=== PATIENT | female | born 1975 | race Asian ===

== ENCOUNTER 2024-03-14 21:55 | Emergency (ER) | payer OTHER, SELFPAY ==
[2024-03-14] VITALS (10 sets, daily range): BP systolic 102–104; BP diastolic 73–75; PULSE 58–67; RESP 13–24; TEMP 37.1; O2SAT 98–100
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
[2024-03-14 22:29] LABS: Basophils Absolute Auto 0.1 K/mm3 (0.0-0.1); Basophils Percent Auto 0.5 % (0.2-1.2); Eosinophils Absolute Auto 0.3 K/mm3 (0-0.3); Eosinophils Percent Auto 2.6 % (0-4.4); Hematocrit 43.1 % (37.0-47.0); Hemoglobin 14.4 g/dL (12.0-15.0); Immature Granulocyte Absolute 0.02 K/mm3 (0.00-0.031); Immature Granulocyte Percent A 0.2 % (0-0.5); Lymphocytes Absolute Auto 3.26 K/mm3 (0.9-3.2); Lymphocytes Percent Auto 30.3 % (18.3-44.2); Mean Corpuscular HGB Conc 33.4 g/dl (32-36); Mean Corpuscular Hemoglobin 31.2 pg (26-34); Mean Corpuscular Volume 93.5 fl (80-100); Mean Platelet Volume 8.6 fl (7.4-10.4); Monocytes Absolute Auto 0.7 K/mm3 (0.1-0.6); Monocytes Percent Auto 6.1 % (2.6-8.5); Neutrophils Absolute Auto 6.5 K/mm3 (1.3-6.7); Neutrophils Percent Auto 60.3 % (45.5-73.1); Platelet Count Result 286 k/mm3 (150-375); Red Blood Count 4.61 M/mm3 (4.2-5.4); Red Cell Distribution Width 12.8 % (11.5-14.5); White Blood Count 10.8 K/mm3 (4.5-10.0)
[2024-03-14 22:41] LABS: Anion Gap 10 mmol/L (4-12); Blood Urea Nitrogen 17 mg/dL (7-17); Calcium 9.2 mg/dL (8.4-10.2); Carbon Dioxide 19 mmol/L (22-30); Chloride 111 mmol/L (98-107); Estimated Glomerular Filt Rate > 60; Glucose 86 mg/dL (65-110); Potassium 3.6 mmol/L (3.4-5.0); Sodium 140 mmol/L (137-145)
--- NOTE | 2024-03-14 22:44 | PC.NURSE ---
Patient taken to CT at this time.
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
[2024-03-15] VITALS: PULSE 62; RESP 22; O2SAT 98
[2024-03-15 00:01] VITALS: BP 100/76; PULSE 59; RESP 23; O2SAT 99
[2024-03-15 00:15] VITALS: PULSE 60; RESP 21; O2SAT 98
[2024-03-15 00:30] VITALS: PULSE 60; RESP 25; O2SAT 99
[2024-03-15 00:31] VITALS: BP 106/81; PULSE 59; RESP 23; O2SAT 98
[2024-03-15 00:39] VITALS: BP 106/81; PULSE 57; RESP 20; O2SAT 99
== END 2024-03-15 00:41 | disposition home or self-care (01) ==
PROVIDERS: Emergency Provider Emergency Medicine
DX: T71.193A Asphyxiation due to mechanical threat to breathing due to other causes, assault, initial encounter (principal); Y04.8XXA Assault by other bodily force, initial encounter
CPT/HCPCS: 36415; 70496; 70498; 80048; 85025; 99284; Q9967

== ENCOUNTER 2024-10-31 22:03 | Emergency (ER) | payer OTHER, SELFPAY ==
[2024-10-31 21:57] VITALS: BP 130/82; PULSE 85; RESP 16; TEMP 36.8; O2SAT 97
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
[2024-10-31 22:42] LABS: Basophils Absolute Auto 0.1 K/mm3 (0.0-0.1); Basophils Percent Auto 0.6 % (0.2-1.2); Eosinophils Absolute Auto 0.2 K/mm3 (0-0.3); Eosinophils Percent Auto 2.3 % (0-4.4); Hematocrit 45.3 % (37.0-47.0); Hemoglobin 15.8 g/dL (12.0-15.0); Immature Granulocyte Absolute 0.02 K/mm3 (0.00-0.031); Immature Granulocyte Percent A 0.2 % (0-0.5); Lymphocytes Absolute Auto 2.62 K/mm3 (0.9-3.2); Lymphocytes Percent Auto 31.7 % (18.3-44.2); Mean Corpuscular HGB Conc 34.9 g/dl (32-36); Mean Corpuscular Volume 91.7 fl (80-100); Monocytes Absolute Auto 0.7 K/mm3 (0.1-0.6); Neutrophils Absolute Auto 4.7 K/mm3 (1.3-6.7); Neutrophils Percent Auto 57.2 % (45.5-73.1); Platelet Count Result 256 k/mm3 (150-375); Red Blood Count 4.94 M/mm3 (4.2-5.4); Red Cell Distribution Width 12.9 % (11.5-14.5); White Blood Count 8.3 K/mm3 (4.5-10.0)
[2024-10-31 22:49] LABS: Add Urine Microscopic? YES; Appearance Urine Clear (Clear); Bacteria Urine None Seen /hpf; Bilirubin Urine Negative (Negative); Blood Urine Non-Hemolyzed Trace (Negative); Color Urine Yellow (Yellow); Glucose Urine UA Negative (Negative); Ketones Urine Trace mg/dL (Negative); Leukocyte Esterase Ur Negative LEU/UL (Negative); Nitrate Urine Negative (Negative); Non Pathogenic Casts 0-2; Protein Urine Trace mg/dL (Negative); Specific Grav Ur 1.024 (1.001-1.035); Squamous Epithelial Cell Urine Occasional /hpf (Few); Urobilinogen Urine 0.2 mg/dL (<2.0); WBC Urine 0-5 /hpf (0-3); pH Urine 5.5 (5.0-9.0)
[2024-10-31 22:56] LABS: Ethanol < 10 mg/dL (<10)
[2024-10-31 23:00] LABS: Alanine Aminotransferase 23 U/L (6-35); Albumin Level 4.5 g/dL (3.5-5.1); Alkaline Phosphatase 91 U/L (38-126); Amphetamine Screen Urine Negative (Negative); Anion Gap 13 mmol/L (4-12); Aspartate Amino Transferase 21 U/L (14-36); Barbiturate Screen Urine Negative (Negative); Benzodiazepines Screen Urine Negative (Negative); Bilirubin,Total 0.7 mg/dL (0.2-1.3); Blood Urea Nitrogen 16 mg/dL (7-17); Calcium 9.7 mg/dL (8.4-10.2); Cannabinoid Screen Urine Negative (Negative); Carbon Dioxide 23 mmol/L (22-30); Chloride 104 mmol/L (98-107); Cocaine Screen Urine Negative (Negative); Estimated Glomerular Filt Rate > 60; Glucose 106 mg/dL (65-110); Methadone Screen Urine Negative (Negative); Opiate Screen Urine Negative (Negative); Phencyclidine Screen Urine Negative (Negative); Potassium 4.1 mmol/L (3.4-5.0); Sodium 140 mmol/L (137-145)
[2024-10-31 23:20] LABS: SARS-CoV-2 RNA PCR Negative (Negative)
--- OUTSIDE RECORDS SUMMARY | 2024-10-31 23:24 | XMS_ITS | Patient Health Record ---
Author Organization [facility] Address [address] [address] Care Team Providers Care Topographical Engineer Name Role Phone Aden CHILD, PCP Primary Care Provider UnavailMaryjo Garcia Unavailable ALLERGIES Allergen (clinical drug ingredient) Drug/Non Drug Allergy documented on EMR Reaction Allergy Type Onset Date Status methimazole methIMAzole Unknown Drug Allergy Act jimmie epinephrine EPINEPHrine Unknown Drug Allergy Act jimmie RESULTS Component Value Reference Range Notes TSH Reviewed date:09/23/2024 01:08:59 PM Interpretation: Performing Lab:[facility], Phone - [phone], Director - Marino Notes/Report: TSH 0.006 0.450-4.500 uIU/mL Estradiol Reviewed date:09/23/2024 12:35:08 PM Interpretation: Performing Lab:[facility], Phone - [phone], Director - Marino Notes/Report: Estradiol 35.9 Adult Female Range Follicular phase 12.5 - 166.0 Ovulation phase 85.8 - 498.0 Luteal phase 43.8 - 211.0 Postmenopausal <6.0 - 54.7 1st trimester 215.0 - >4300.0 Dianelys ECLIA methodology FSH and LH Reviewed date:09/23/2024 11:50:13 AM Interpretation: Performing Lab:[facility], Phone - [phone], Director - Marino Notes/Report: LH 30.4 Adult Female Range Follicular phase 2.4 - 12.6 Ovulation phase 14.0 - 95.6 Luteal phase 1.0 - 11.4 Postmenopausal 7.7 - 58.5 FSH 40.5 Adult Female Range Follicular phase 3.5 - 12.5 Ovulation phase 4.7 - 21.5 Luteal phase 1.7 - 7.7 Postmenopausal 25.8 - 134.8 T4, Free Reviewed date:09/23/2024 11:51:47 AM Interpretation: Performing Lab:[facility] [place], [address] [facility]3], Phone - [phone], Director - [facility] Notes/Report: T4,Free(Direct) 1.86 0.82-1.77 ng/dL T3, Total Reviewed date:09/23/2024 11:50:06 AM Interpretation: Performing Lab:[facility] [place], [address] [facility]3], Phone - [phone], Director - [facility] Notes/Report: Triiodothyronine (T3) 154 71-180 ng/dL -Ultrasound: Thyroid Reviewed date:10/19/2024 02:58:26 PM Interpretation: Performing Lab: Notes/Report: REASON FOR REFERRAL No Information MEDICATIONS Medication SIG (Take, Route, Frequency, Duration) Notes Start Date End Date Status Liothyronine Sodium 5 MCG 1 tablet on an empty stomach Orally Two Times a Day Active Unithroid 75 MCG 1 tablet in the morn ing on an empty stomach Orally Once a day for 60 days 09/28/2024 Active clonazePAM 1 MG 1 tablet Orally Once a day Active amLODIPine Besylate 10 MG 1 tablet Orall y Once a day for 30 day(s) Active Norethindrone Acetate 5 MG 1 tablet Oral ly Once a day for 30 day(s) Active Fexofenadine HCl 180 MG 1 tablet Swallow whole with water; do not take with fruit juices. Orally Once a day for 30 day(s) Active SOCIAL HISTORY Tobacco Use: Social History Observation Description Date Details (start date - stop date) Current Smoker NA - NA Sex Assigned At : Social History Observation Description Sex Assigned At Unknown Tobacco Use/Smoking Question Answer Notes Are you a current every day smoker PROBLEMS Problem Type ICD Code Onset Dates Problem Status W/U Status Risk SNOMED Code Notes Problem Hypothyroid (E03.9) Active confirmed Hypothyroid (61403404) 07/13/24 TSH 0.017, FT4 1.76 01/30 TSH 2.83, FT4 1.1 Problem Graves' disease (E05.00) Active confirmed Graves' disease (305131019) 11/03 There is diffuse heterogen eity. There are no thyroid nodules. Problem Perimenopausal (N95.1) Active confirmed Perimenopausal (060472873432319 ) Problem Hypothyroidism, postablative (E89.0) Active confirmed Postoperative Hypothyroidism (13916641) 07/13/24 TSH 0.017, FT4 1.76 01/30 TSH 2.83, FT4 1.1 Problem Dysphagia (R13.10) Active confirmed Dysphagia (05702542) VITAL SIGNS Heart Rate 64 /min 09/21/2024 Blood pressure diastolic 84 mm Hg 09/21/2024 Height 58 in 09/21/2024 Blood pressure systolic 124 mm Hg 09/21/2024 Weight 91 lbs 09/21/2024 BMI 19.02 kg/m2 09/21/2024 Encounters Encounter Location Date Provider Diagnosis [facility] [address] [place] [phone] 09/21/2024 Maryjo Rosario Graves' disease E05.00 ; Hypothyroidism, postablative E89.0 ; Perimenopausal N95.1 and Dysphagia R13.10 [facility] [address] [place] [phone] 10/13/2024 Maryjo Cardenasine Hypothyroidism, postablative E89.0 and Dysphagia R13.10 [facility] [address] [place] [phone] 09/21/2024 Maryjo Hurt [facility] [address] [place] [phone] 09/23/2024 Maryjo Hurt [place] Hypothyroidism, postablative E89.0 [facility] [address] [place] [phone] 09/28/2024 Maryjo Rosario [facility] [address] [place] [phone] 10/22/2024 Maryjo Rosario ASSESSMENTS Encounter Date Diagnosis Assessment Notes Treatment Notes Treatment Clinical Notes 09/21/2024 Graves' disease (ICD-10 - E05.00) 09/21/2024 Hypothyroidism, postablative (ICD-10 - E89.0) 07/13/24 TSH 0.017, FT4 1.76 01/30 TSH 2.83, FT4 1.1 Reviewed dosing and compliance. Reviewed 08/02 TFTs that were high. She reports 09/01 TFTs were normal and will request record. Her energy is good but she doesn't sleep well. Await labs. 10/13/2024 Hypothyroidism, postablative (ICD-10 - E89.0) 10/13/2024 Dysphagia (ICD-10 - R13.10) 09/23/2024 Hypothyroidism, postablative (ICD-10 - E89.0) 07/13/24 TSH 0.017, FT4 1.76 01/30 TSH 2.83, FT4 1.1 09/21/2024 Perimenopausal (ICD-10 - N95.1) She was on continuous OCP until 2 months ago. She hasn't had a period since and was told she is in menopause. 09/21/2024 Dysphagia (ICD-10 - R13.10) She has dysphagia. She has no palpable thyroid nodules. Check baseline US. PLAN OF TREATMENT Future Test Test Name Order Date T4, FREE 11/04/2024 TSH, 3RD GENERATION 11/04/2024 T3, TOTAL 11/04/2024 Next Appt Details Provider Name:Maryjo Hinson barby Lizarragajeronimomary jo, 12/21/2024 01:45:00 PM, [address] [place] [address], [phone], Insurance Providers Payer Name Payer Address Payer Phone Subscriber Number Group Number Insured Name Patient Relationship to Insured Coverage Start Date [place] [phone] [id number] Val Salgado Self - patient is the insured MEDICAL (GENERAL) HISTORY Medical History History ICD Code cervical radiculopathy anxiety depression hypertension Hypothyroid Graves Disease Graves Opthalmopathy Surgical History Surgery Date(Month/Year) section x2 eyelid surgery for graves disease
--- OUTSIDE RECORDS SUMMARY | 2024-10-31 23:24 | XMS_ITS | Referral Summary ---
Author Organization [facility] [employer] Address [address] [place] [address] Care Team Providers Care Environmental Field Services Technician Name Role Phone [address] Primary Care Prov ider Source Comments [facility],non-owned Affiliates and Associated Physician Practices is amultiple site organization consisting of ambulatory clinics and hospital sitesin [place], [place], [place] and [place]. This disclosure is being madepursuant to the Care Everywhere program and may not contain all information available regarding this patient. Last updated 18.[facility] [employer] Allergies Active Allergy Reactions Criticality Noted Date Comments Epinephrine Anaphylaxis,Rash High 04/16/2016 Thiamazole Other 05/19/2012 Medications Be aware that medications may not be up to date on this document. Always verify current medications with the patient. No known medications Active Problems Problem Noted Date Diagnosed Date Iron deficiency anemia due to chronic blood loss 04/13/2020 Social History Tobacco Use Types Packs/Day Years Used Date Smoking Tobacco: Some Days Smokeless Tobacco: Never Alcohol Use Standard Drinks/Week Comments Never 0 (1 standard drink = 0.6 oz pur e alcohol) AUDIT-C Answer Date Recorded Q1: How often do you have a drink containing alc ohol? Never 04/13/2020 Average Number of Drinks Not on file 020 Frequency of Binge Drinking Not on file 01/2020 Sex and Gender Information Value Date Recorded Sex Assigned at Not on file Gender Identity Not on file Sexual Orientation Not on file Last Filed Vital Signs Vital Sign Reading Time Taken Comments Blood Pressure 111/83 04/13/2020 3:32 PM CDT Pulse 73 04/13/2020 3:32 PM CDT Temperature 36.7 C (98.1 F) 04/13/2020 3:32 PM CDT Respiratory Rate 18 04/13/2020 3:32 PM CDT Oxygen Saturation 98% 04/13/2020 3:32 PM CDT Inhaled Oxygen Concentration - - Weight 44.5 kg (98 lb 1.6 oz) 04/13/2020 3:32 PM CDT Height 147.3 cm (4' 10 ) 04/13/2020 3:32 PM CDT Body Mass Index 20.5 04/13/2020 3:32 PM CDT Plan of Treatment Not on file Care Teams Environmental Field Services Technician Relationship Specialty Start Date End Date [facility] [address] [place] [address] PCP - General 03/30/20
--- OUTSIDE RECORDS SUMMARY | 2024-10-31 23:24 | XMS_ITS | Clinical Summary ---
Author Organization [facility] Address [address] [place] [id number] Care Team Providers Care Food And Nutrition Professor Name Role Phone Tony Solis Primary Care Provid er Allergies Active Allergy Reactions Criticality Noted Date Comments Epinephrine Other (see comment) Low 07/09/2019 Patient states that her heart rate drops Methimazole Other (see comment) 05/19/2012 Medications amLODIPine 5 MG tablet Take 2 tablets (10 mg total) by mouth daily. Active atorvastatin 20 MG tablet 10/24/2021 Active sertraline 100 MG tablet 08/17/2021 Active KLONOPIN 1 MG tablet 11/16/2021 Active levothyroxine 88 MCG tablet Take 1 tablet (88 mcg total) by mouth daily. Active norethindrone 5 MG tablet Take 1 tablet (5 mg total) by mouth daily. Active fluticasone propionate (FLONASE) 50 MCG/ACT nasal spray 12/19/2022 Active cyclobenzaprine (FLEXERIL) 10 MG tablet 04/01/2023 Active melatonin 3 MG tablet Take 1 tablet (3 mg total) by mouth nightly as needed. 30 tablet 10/26/2024 Active Active Problems Problem Noted Date Diagnosed Date Bilateral occipital neuralgia 01/07/2023 Spondylolisthesis of cervical region 07/05/2022 Other cervical disc degenera tion, unspecified cervical region 07/05/2022 Neck pain 04/26/2022 Foraminal stenosis of cervical region 11/28/2021 Cervical radiculopathy 11/28/2021 Cervicalgia 11/28/2021 Myofascial pain 05/20/2020 Overview (05/20/2020): Added automatically from request for surgery [id number] Encounters Date Type Department Care Team Description 10/27/2024 Telephone [facility] [address] [place] [address] Raphael De La Cruz MD Appointment Request 10/26/2024 12:09 AM TREASURY CONSULTANT - 10/26/2024 2:53 AM TREASURY CONSULTANT Emergency [facility] [place] [address] Sari Kaba NP Bradycardia Discharge Disposition: Home or Self Care (Routine Discharge) 10/26/2024 Travel from Last 3 Months Family History Medical History Relation Comments Diabetes Father Relation Status Comments Father Social History Tobacco Use Types Packs/Day Years Used Date Smoking Tobacco: Every Day Cigarettes 0.3 30 Passive Smoke Exposure: Current Smokeless Tobacco: Never Tobacco Cessation:Ready to Q uit: Not Asked; Counseling Given: Not Answered Alcohol Use Standard Drinks/Week Comments No 0 (1 standard drink = 0.6 oz pur e alcohol) AUDIT-C Answer Date Recorded Frequency of Alcohol Consumption Never 07/09/2019 Average Number of Drinks Not on file 019 Frequency of Binge Drinking Not on file 06/11 PHQ-2 Answer Date Recorded Patient Health Questionnaire-2 Score 0 10/10/2022 Comments No Sex and Gender Information Value Date Recorded Sex Assigned at Female 10/26/2024 12:18 AM TREASURY CONSULTANT Legal Sex Female 2:51 PM TREASURY CONSULTANT Gender Identity Not on file Sexual Orientation Not on file Last Filed Vital Signs Vital Sign Reading Time Taken Comments Blood Pressure 129/79 10/26/2024 2:48 AM TREASURY CONSULTANT Pulse 47 10/26/2024 2:48 AM TREASURY CONSULTANT Temperature 36.7 C (98.1 F) 10/25/2024 11:57 PM TREASURY CONSULTANT Respiratory Rate 25 10/26/2024 2:30 AM TREASURY CONSULTANT Oxygen Saturation 100% 10/26/2024 2:30 AM TREASURY CONSULTANT Inhaled Oxygen Concentration - - Weight 47.6 kg (105 lb) 09/05/2023 1:05 PM TREASURY CONSULTANT Height 148 cm (4' 10.27 ) 10/25/2024 11:57 PM CS T Body Mass Index 21.95 09/05/2023 1:05 PM TREASURY CONSULTANT Plan of Treatment Upcoming Encounters Date Type Department Care Team (Late st Contact Info) Description 01/01/2025 11:15 AM CDT Office Visit [facility] [address] [place], [place] [id number] Raphael De La Cruz MD [facility] [address] [place], [place] [id number] Health Maintenance Due Date Last Done Comments Annual Physical 1979 Pneumococcal Vaccine: Pediatrics (0 to 5 Years) and At-Risk Patients (6 to 64 Years) (1 of 2 - PCV) 1982 Hepatitis C 1994 Cervical Cancer Screening Pap with HPV Testing (Age 30 to 64) Every 5 Years 2006 Mammogram Screening 2016 Cervical Cancer Screening Pap Smear (Age 30 to 64) Every 3 Years 08/15/2018 08/15/2015 Cervical Cancer Screening with HPV 08/15/2018 COVID-19 Vaccine ( season) 2024 11/16/2021, 03/08/2021, 01/26/2021 Influenza Adult (#1) 2024 11/07/2009, 11/07/2009, 09/21/2008, Additional history exists Colorectal Cancer Screening FIT/FOBT (1 Year) 09/05/2024 09/05/2023 PHQ-2 (Physician Randolph) 09/09/2024 DTaP, Tdap and Td Vaccines (2 - Td or Tdap) 05/28/2027 05/28/2017, 02/02/2005, 12/25/2004 Hepatitis B Vaccines Completed 12/25/2004, 07/26/2004, 06/08/2004 Meningococcal B Vaccine Aged Out No l onger eligible based on patient's age to complete this topic Meningococcal Vaccine Aged Out No corey den eligible based on patient's age to complete this topic RSV Immunizations Under 20 Months Aged Out No longer eligible based on patient's age to complete this topic Procedures Procedure Name Priority Date/Time Associated Diagnosis Comments ECG 12-LEAD STAT 10/26/2024 1:45 AM TREASURY CONSULTANT TROPONIN, QUANT STAT 10/26/2024 1:44 AM TREASURY CONSULTANT THYROXINE, FREE (FT4) STAT 10/26/2024 12:30 AM TREASURY CONSULTANT TSH W/REFLEX STAT 10/26/2024 12:30 AM TREASURY CONSULTANT MAGNESIUM STAT 10/26/2024 12:30 AM TREASURY CONSULTANT TROPONIN, QUANT STAT 10/26/2024 12:30 AM TREASURY CONSULTANT COMPREHENSIVE METABOLIC PANEL STAT 10/26/2024 12:30 AM TREASURY CONSULTANT CBC W/DIFF AUTOMATED STAT 10/26/2024 12:30 AM TREASURY CONSULTANT XR CHEST PORTABLE STAT 10/26/2024 12: 28 AM TREASURY CONSULTANT ECG 12-LEAD Routine 10/26/2024 12:13 AM TREASURY CONSULTANT OCCULT BLOOD, FECES STAT 09/05/2023 2 :00 PM TREASURY CONSULTANT from Last 3 Months or Most Recently Relevant to Health Maintenance Results * ECG 12 lead (10/26/2024 1:45 AM TREASURY CONSULTANT) Only the most recent of2 resultswithin the time period is included. 10/26/2024 1:45 AM TREASURY CONSULTANT Narrative [facility] - 10/26/2024 5:32 AM TREASURY CONSULTANT [place] [address] Test Date: 2024-10-26 Pat Name: VAL PACE Department: 41 Room: [place] [address] Gender: Female Manager Test: : 1975 Requested By: SARI KABA Order Number: [id number] Reading MD: Andres Rodríguez Measurements Intervals [place] Rate: 48 P: 68 OH: 152 QRS: 87 QRSD: 101 T: 53 QT: 465 QTc: 417 Interpretive Statements SINUS BRADYCARDIA WITH OCCASIONAL SUPRAVENTRICULAR PREMATURE COMPLEXES Compared to ECG 10/26/2024 00:13:57 No significant changes SURY CONSULTANT Procedure Note Andres Rodríguez MD - 10/26/[address] Test Date: 2024-10-26 Pat Name: VAL PACE Department: 41 Room: [place] [address] Gender: Female Manager Test: : 1975 Requested By: SARI KABA Order Number: [id number] Reading MD: Andres Rodríguez Measurements Intervals [place] Rate: 48 P: 68 [place]: 152 QRS: 87 QRSD: 101 T: 53 QT: 465 QTc: 417 Interpretive Statements SINUS BRADYCARDIA WITH OCCASIONAL SUPRAVENTRICULAR PREMATURE COMPLEXES Compared to ECG 10/26/2024 00:13:57 No significant changes SURY CONSULTANT Sari Kaba EXPORT SALES ASSISTANT ECG ORDERABLES Final Result Performing Organization Address [facility] [[email or web address]] Co de Phone Number [facility] RAD * TROPONIN, QUANT (10/26/2024 1:44 AM TREASURY CONSULTANT) Only the most recent of2 resultswithin the time period is included. TROPONIN I HIGH SENSITIVITY 5 <54 ng/L 10/26/2024 2:35 AM TREASURY CONSULTANT [facility] Comment: HIGH DOSES OF BIOTIN, TROPONIN-SPECIFIC AUTOANTIBODIES, AND ANTIBODY THERAPY CONTAINING HAMA MAY INTERFERE WITH THIS TEST RESULT. CORRELATION TO CLINICAL HISTORY AND PRESENTATION RECOMMENDED. 10/26/2024 1:44 AM TREASURY CONSULTANT Sari C Kaba EXPORT SALES ASSISTANT LABORATORY Final Result Performing Organization Address [facility]/ZIP Co de Phone Number [facility] [address] [place] [address], * (ABNORMAL) TSH W/REFLEX (10/26/2024 12:30 AM TREASURY CONSULTANT) TSH 0.219(L) 0.358 - 3.74 uIU/ML 10/26/2024 1:08 AM [facility] Comment: HIGH DOSES OF BIOTIN MAY INTERFERE WITH THIS TEST RESULT. CORRELATION TO CLINICAL HISTORY AND PRESENTATION RECOMMENDED. 10/26/2024 12:3 0 AM TREASURY CONSULTANT Sari Jimenez Segun EXPORT SALES ASSISTANT LABORATORY Final Result Performing Organization Address [facility] [[email or web address]] Co de Phone Number [facility] [address] [place] [address], * COMPREHENSIVE METABOLIC PANEL (10/26/2024 12:30 AM TREASURY CONSULTANT) GLUCOSE 87 70 - 99 MG/DL 10/26/2024 1:08 AM [facility] BUN 13 7 - 18 MG/DL 10/26/2024 1:08 AM [facility] CREATININE S/P/B 0.68 0.55 - 1.02 MG/DL 10/26/2024 1:08 AM [facility] SODIUM S/P/B 137 136 - 145 MMOL/L 10/26/2024 1:08 AM [facility] POTASSIUM S/P/B 4.0 3.5 - 5.1 MMOL/L 10/26/2024 1:08 AM [facility] Comment:SLIGHT HEMOLYSIS, RE SULT MAY BE AFFECTED. CHLORIDE S/P/B 108 97 - 115 MMOL/L 10/26/2024 1:08 AM [facility] CO2 26.4 21 - 32 MMOL/L 10/26/2024 1:08 AM [facility] CALCIUM S/P/B 8.9 8.5 - 10.1 MG/DL 10/26/2024 1:08 AM [facility] BILIRUBIN TOTAL S/P/B 0.5 0.2 - 1.2 MG/DL 10/26/2024 1:08 AM [facility] Comment: THIS ASSAY IS NOT RECOMMENDED FOR PATIENTS UNDERGOING TREATMENT WITH ELTROMBOPAG DUE TO THE POTENTIAL FOR FALSELY ELEVATED RESULTS. TOTAL PROTEIN S/P/B 6.6 6.4 - 8.2 G/DL 10/26/2024 1:08 AM [facility] ALBUMIN S/P/B 3.4 3.4 - 5.0 G/DL 10/26/2024 1:08 AM [facility] AST 20 15 - 37 U/L 10/26/2024 1:08 AM [facility] Comment:SLIGHT HEMOLYSIS, RE SULT MAY BE AFFECTED. ALT 34 14 - 55 U/L 10/26/2024 1:08 AM [facility] ALKALINE PHOSPHATASE S/P/B 95 50 - 136 U/L 10/26/2024 1:08 AM [facility] ANION GAP 2.6 2 - 10 MMOL/L 10/26/2024 1:08 AM [facility] BUN CREATININE RATIO 19.3 6 - 26 10/26/2024 1:08 AM [facility] A/G RATIO 1.1 1.0 - 2.0 RATIO 10/26/2024 1:08 AM [facility] GFR ESTIMATE >90 >90 ML/MIN/1.7 3 M2 10/26/2024 1:08 AM [facility] Comment: NOTE: eGFR is not calculated for patients <18 years of age or gender unknown. This is an estimated GFR calculation using the new CKD EPI creatinine equation without race and so does not require a correction factor for race. This estimated GFR should not be used for calculating drug doses. 10/26/2024 12:3 0 AM TREASURY CONSULTANT Sari Kaba NP LABORATORY Final Result [facility] [address] [place] [address], [place] [phone] * (ABNORMAL) CBC W/DIFF AUTOMATED (10/26/2024 12:30 AM TREASURY CONSULTANT) WBC 8.56 4.5 - 11.0 x10'3/uL 10/26/2024 12:44 AM TREASURY CONSULTANT [facility] RBC 4.44 4.20 - 5.40 x10'6/uL 10/26/2024 12:44 AM [facility] HGB 14.0 12.0 - 16.0 G/DL 10/26/2024 12:44 AM [facility] HCT 41.1 38.0 - 48.0 % 10/26/2024 12:44 AM [facility] MCV 92.6 81.0 - 99.0 FL 10/26/2024 12:44 AM [facility] MCH 31.5(H) 27.0 - 31.0 PG 10/26/2024 12:44 AM TREASURY CONSULTANT [facility] MCHC 34.1 32.0 - 36.0 G/DL 10/26/2024 12:44 AM [facility] RDW 13.1 11.5 - 14.5 % 10/26/2024 12:44 AM [facility] PLT 236 130 - 400 x10'3/uL 10/26/2024 12:44 AM [facility] MPV 9.5 9.3 - 12.2 FL 10/26/2024 12:44 AM [facility] DIFFERENTIAL TYPE AUTOMATED DIFFERENTIAL 10/26/2024 12:44 AM [facility] NEUTROPHILS % 50.6 % 10/26/2024 12:44 AM [facility] LYMPHOCYTES % 38.9 % 10/26/2024 12:44 AM [facility] MONOCYTES % 6.3 % 10/26/2024 12:44 AM [facility] EOSINOPHILS 3.3 % 10/26/2024 12:44 AM [facility] BASOPHILS 0.7 % 10/26/2024 12:44 AM [facility] IMMATURE GRANS % 0.2 % 10/26/19 12:44 AM [facility] ABS. NEUTROPHILS 4.33 1.80 - 7.70 x10'3/uL 10/26/2024 12:44 AM [facility] ABS. LYMPHOCYTES 3.33 1.00 - 4.80 x10'3/uL 10/26/2024 12:44 AM [facility] ABS. MONOCYTES 0.54 0.24 - 0.86 x10'3/uL 10/26/2024 12:44 AM [facility] ABS. EOSINOPHILS 0.28 0.04 - 0.36 x10'3/uL 10/26/2024 12:44 AM [facility] ABS. BASOPHILS 0.06 0.01 - 0.08 x10'3/uL 10/26/2024 12:44 AM [facility] ABS. IMMATURE GRANULOCYTES 0.02 0.00 - 0.49 x10'3/uL 10/26/2024 12:44 AM TREASURY CONSULTANT [facility] 10/26/2024 12:3 0 AM TREASURY CONSULTANT us Sari Kaba EXPORT SALES ASSISTANT LABORATORY Final Result Performing Organization Address [facility] [[email or web address]] Co de Phone Number [facility] [address] [place] [address], [place] [phone] * THYROXINE, FREE (FT4) (10/26/2024 12:30 AM TREASURY CONSULTANT) FREE T4 1.05 0.76 - 1.46 NG/DL 10/26/2024 1:28 AM TREASURY CONSULTANT [facility] 10/26/2024 12:3 0 AM TREASURY CONSULTANT us Sari Kaba EXPORT SALES ASSISTANT LABORATORY Final Result Performing Organization Address [facility] [[email or web address]] Co de Phone Number [facility] [address] [place] [address], [place] [phone] * MAGNESIUM (10/26/2024 12:30 AM TREASURY CONSULTANT) MAGNESIUM 2.2 1.8 - 2.4 MG/DL 10/26/2024 1:08 AM TREASURY CONSULTANT [facility] Comment:SLIGHT HEMOLYSIS, RE SULT MAY BE AFFECTED. 10/26/2024 12:3 0 AM TREASURY CONSULTANT us Sari Kaba EXPORT SALES ASSISTANT LABORATORY Final Result Performing Organization Address City/[facility] [[email or web address]] Co de Phone Number [facility] [address] [place] [address], [place] [phone] * XR CHEST PORTABLE (10/26/2024 12:28 AM TREASURY CONSULTANT) Anatomical Region Laterality Modality Chest Radiographic Li ging 10/26/2024 12:2 9 AM TREASURY CONSULTANT Impressions 10/26/2024 12:29 AM TREASURY CONSULTANT IMPRESSION: ======== 1. No acute cardiopulmonary findings. Referred By: Interpreted By: Mayco Amos MD, 10/26/2024 12:29 AM Narrative 10/26/2024 12:29 AM TREASURY CONSULTANT [place] [address] Examination: Chest x-ray 1 view Exam Date/Time: 10/26/2024 12:15 AM Reason For Exam: bradycardia Comparison: Chest radiograph 07/12/2020 Technique: Single AP view of the chest was obtained. Findings: Heart size normal. Pulmonary vascularity within normal limits. No large effusion. No pneumothorax. No focal infiltrate or consolidation. Surgical clips in the upper right abdomen. ======== Procedure Note Mayco Amos MD - 10/26/2024 [place] [address] Examination: Chest x-ray 1 view Exam Date/Time: 10/26/2024 12:15 AM Reason For Exam: bradycardia Comparison: Chest radiograph 07/12/2020 Technique: Single AP view of the chest was obtained. Findings: Heart size normal. Pulmonary vascularity within normal limits.No large effusion. No pneumothorax. No focal infiltrate orconsolidation. Surgical clips in the upper right abdomen. ======== IMPRESSION: ======== 1. No acute cardiopulmonary findings. Referred By: Interpreted By: Mayco Amos MD, 10/26/2024 12:29 AM us Sari Kaba EXPORT SALES ASSISTANT GENERAL IMAGING Final Result * OCCULT BLOOD, FECES (09/05/2023 2:00 PM TREASURY CONSULTANT) OCCULT BLOOD FECAL POSITIVE 09/05/2023 2:45 PM TREASURY CONSULTANT [facility] STOOL SPECIMEN / Unknown 09/05/2023 2:00 PM TREASURY CONSULTANT us Lelo VYAS BODY FLUIDS AND STOOLS ORDERAB LES Final Result [facility] [address] [place] [address], from Last 3 Months or Most Recently Relevant to Health Maintenance Insurance Care Teams Food And Nutrition Professor Relationship Specialty Start Date End Date Tony Solis PA PCP - General PHYSICIAN PLANT MAINTENANCE TECHNICIAN 10/12/22
--- OUTSIDE RECORDS SUMMARY | 2024-10-31 23:24 | XMS_ITS | Patient Health Record ---
Author Organization [facility] Address [address] [place] [phone] Care Team Providers Care Color Separation Photographer Name Role Phone Lesa Medina Unavailable [phone] Reason For Referral No Information Plan Of Treatment No Information Insurance Providers Payer Name Payer Address Payer Phone Subscriber Number Group Number Insured Name Patient Relationship to Insured Coverage Start Date Coverage End Date [facility] [address] [place] [address] [phone] [id number] Val Salgado Self - patient is the insured
--- OUTSIDE RECORDS SUMMARY | 2024-10-31 23:24 | XMS_ITS | Patient Health Summary ---
Author Organization [facility] Address [address] [place] [address] Care Team Providers Care Art Professor Name Role Phone [address] Primary Care Prov ider Note from [facility],non-owned Affiliates and Associated Physician Practices is amultiple site organization consisting of ambulatory clinics and hospital sitesin [place], [place], [place] and [place]. This disclosure is being madepursuant to the Care Everywhere program and may not contain all information available regarding this patient. Last updated 18.[facility] Allergies * Epinephrine(Anaphylaxis,Rash) -High Criticality * Thiamazole(Other) Medications Be aware that medications may not [...] Mass Index 20.5 04/13/2020 3:32 PM CDT Procedures * TSH(Performed 04/13/2020) Performed for Iron deficiency anemia due to chronic blood loss * HEMOGLOBIN ELECTROPHORESIS(Performed 04/13/2020) Performed for Iron deficiency anemia due to chronic blood loss * FERRITIN(Performed 04/13/2020) Performed for Iron deficiency anemia due to chronic blood loss * ZINC BLOOD(Performed 04/13/2020) Performed for Iron deficiency anemia due to chronic blood loss * VITAMIN B12(Performed 04/13/2020) Performed for Iron deficiency anemia due to chronic blood loss * TRANSFERRIN(Performed 04/13/2020) Performed for Iron deficiency anemia due to chronic blood loss * SOLUBLE TRANSFERRIN RECEPTOR(Performed 04/13/2020) Performed for Iron deficiency anemia due to chronic blood loss * RETIC COUNT(Performed 04/13/2020) Performed for Iron deficiency anemia due to chronic blood loss * LDH BLOOD(Performed 04/13/2020) Performed for Iron deficiency anemia due to chronic blood loss * IRON BLOOD(Performed 04/13/2020) Performed for Iron deficiency anemia due to chronic blood loss * FOLATE(Performed 04/13/2020) Performed for Iron deficiency anemia due to chronic blood loss * COPPER BLOOD(Performed 04/13/2020) Performed for Iron deficiency anemia due to chronic blood loss * CBC W AUTO DIFFERENTIAL(Performed 04/13/2020) Performed for Iron deficiency anemia due to chronic blood loss Results * ZINC BLOOD (04/13/2020 4:37 PM CDT) [facility] Zinc 69.3 60.0 - 120.0 ug/dL 04/19/2020 1:10 AM CDT [facility] ([facility]) Comment: INTERPRETIVE INFORMATION: Zinc, Serum or Plasma Elevated results may be due to skin or collection-related contamination, including the use of a noncertified metal-free collection/transport tube. If contamination concerns exist due to elevated levels of serum/plasma zinc, confirmation with a second specimen collected in a certified metal-free tube is recommended. Circulating zinc concentrations are dependent on albumin status and are depressed with malnutrition. Zinc may also be lowered with infection, inflammation, stress, oral contraceptives, and . Zinc may be elevated with zinc supplementation or fasting. Elevated zinc concentrations may interfere with copper absorption. Test developed and characteristics determined by [facility]. See Compliance Statement B: [email or web address] Performed By: [facility] [address] [place] [address] [employer] Medic: Paul Morelos MD, MS Blood BLOOD SPECIMEN / Unknown Lab Venipuncture / Unknown 04/13/2020 4:37 PM CDT 04/13/2020 4:43 PM CDT Jluis Gay MD LAB - CHEMISTRY ORD ERABLES Performing Organization Address City/[facility]/ZIP Co de Phone Number [facility] ([facility]) [address] [place] [address] * TRANSFERRIN (04/13/2020 4:37 PM CDT) Pathologist [facility] Transferrin 256 174 - 382 mg/dL 04/13/2020 5:06 PM CDT [facility] Transferrin Saturation % 22 16 - 50 % 04/13/2020 5:06 PM CDT [facility] Blood BLOOD SPECIMEN / Unknown Lab Venipuncture / Unknown 04/13/2020 4:37 PM CDT 04/13/2020 4:42 PM CDT Jluis Gay MD LAB - CHEMISTRY ORD ERABLES [address] [address] [phone] * HEMOGLOBIN ELECTROPHORESIS (04/13/2020 4:37 PM CDT) Pathologist [facility] Interpretation Hemoglobin Pattern See Comment Normal Pattern 04/21/2020 12:50 PM CDT [facility] Comment: Capillary hemoglobin (Hb) electrophoresis shows 2 Hb bands with electrophoretic mobilities corresponding to HbA & HbA2. No abnormal hemoglobins detected. One or two gene deletion alpha thalassemia cannot be excluded since these conditions are not associated with abnormal findings on routine hemoglobin electrophoresis and except for mild microcytosis, are generally not associated with other hematologic abnormalities. Donald Mckoy MD PG-1 Pathology Pager: [phone] Mendy Menard PhD, DAB(CC,TC) Clinical Climatology Professor and Belt Splicer gardener Hemoglobin A 97.5 97.0 - 98.2 % 04/21/2020 12:50 PM CDT [facility] Hemoglobin A2 2.5 1.8 - 3.0 % 04/21/2020 12:50 PM CDT [facility] Blood BLOOD SPECIMEN / Unknown Lab Venipuncture / Unknown 04/13/2020 4:37 PM CDT 04/13/2020 4:43 PM CDT Jluis Gay MD LAB - CHEMISTRY ORD ERABLES [address] [address] [phone] * COPPER BLOOD (04/13/2020 4:37 PM CDT) Copper 99.1 80.0 - 155.0 ug/dL 04/19/2020 1:09 AM CDT [facility] ([facility]) Comment: INTERPRETIVE INFORMATION: Copper, Serum or Plasma Elevated results may be due to skin or collection-related contamination, including the use of a noncertified metal-free collection/transport tube. If contamination concerns exist due to elevated levels of serum/plasma copper, confirmation with a second specimen collected in a certified metal-free tube is recommended. Serum copper may be elevated with infection, inflammation, stress, and copper supplementation. In females, elevated copper may also be caused by oral contraceptives and (concentrations may be elevated up to 3 times normal during the third trimester). Test developed and characteristics determined by [facility]. See Compliance Statement B: [email or web address] Performed By: [facility] [address] [place] [id number] [employer] Medic: Paul Morelos MD, MS Blood BLOOD SPECIMEN / Unknown Lab Venipuncture / Unknown 04/13/2020 4:37 PM CDT 04/13/2020 4:43 PM CDT Jluis Gay MD LAB - CHEMISTRY ORD ERABLES Performing Organization Address City/[facility]/ZIP Co de Phone Number [employer] [facility]) [address] * SOLUBLE TRANSFERRIN RECEPTOR (04/13/2020 4:37 PM CDT) Soluble Transferrin Receptor 2.7 1.9 - 4.4 mg/L 04/15/2020 9:35 PM CDT [facility] [place] ([facility]) Comment: INTERPRETIVE INFORMATION: Soluble Transferrin Receptor People of descent and those residing at 5200 feet (1600 meters) above sea level were found to have a 6% higher normal value. These differences were additive. Reference intervals have not been established for females, patients under 18 years of age, and recent or frequent blood donors. Serum soluble transferrin receptor increases in iron deficiency and is usually unaffected by chronic disease states. In general, to increase sensitivity and specificity, the measurement of serum soluble transferrin receptor should be performed in combination with other tests of iron status, including ferritin, TIBC, and serum iron. (See Table Below). Tests for Iron Anemia of Combined Iron Changes Def. Chronic Def. and anemia Analyte in: Anemia Disease of Chronic Dz ------- -------- ------ --------- Ferritin Fe Stores Low High Normal or High TIBC Fe Status High Low Normal or High Serum Fe Fe Status Low Low Low sTfR Fe Status High Normal High Performed By: [facility] [address] [place] [address] [employer] Medic: Paul Morelos MD, MS Blood BLOOD SPECIMEN / Unknown Lab Venipuncture / Unknown 04/13/2020 4:37 PM CDT 04/13/2020 4:43 PM CDT Jluis Gay MD LAB - CHEMISTRY ORD ERABLES [employer] [facility]) [address] * RETIC COUNT (04/13/2020 4:37 PM CDT) Reticulocyte % 2.2 0.4 - 2.5 % 04/13/2020 4:50 PM T [facility] Reticulocyte Absolute 0.10 0.02 - 0.13 10 6/uL 04/13/2020 4:50 PM T [facility] Blood BLOOD SPECIMEN / Unknown Lab Venipuncture / Unknown 04/13/2020 4:37 PM CDT 04/13/2020 4:43 PM CDT Jluis Gay MD LAB - HEMATOLOGY OR DERABLES [address] [address] [phone] * (ABNORMAL) CBC WITH DIFFERENTIAL (04/13/2020 4:37 PM CDT) WBC 8.6 3.5 - 10.5 10 3/uL 04/13/2020 4:49 PM [facility] RBC 4.68 3.90 - 5.00 10 6/uL 04/13/2020 4:49 PM [facility] Hemoglobin 13.5 12.0 - 15.5 g/dL 04/13/2020 4:49 PM [facility] Hematocrit 40.9 35.0 - 45.0 % 04/13/2020 4:49 PM [facility] MCV 87.4 81.0 - 97.0 fL 04/13/2020 4:49 PM [facility] MCH 28.8 28.0 - 34.0 pg 04/13/2020 4:49 PM [facility] MCHC 33.0 32.0 - 36.0 g/dL 04/13/2020 4:49 PM [facility] Platelet Count 286 150 - 400 10 3/uL 04/13/2020 4:49 PM [facility] RDW-SD 58.1(H) 36.0 - 50.0 fL 04/13/2020 4:49 PM [facility] RDW-CV 18.2(H) 11.2 - 14.8 % 04/13/2020 4:49 PM [facility] MPV 8.9(L) 9.3 - 12.8 fL 04/13/2020 4:49 PM [facility] nRBC Absolute 0.00 0 10 3/uL 04/13/2020 4:49 PM [facility] nRBC Auto 0.0 0 /100 WBC 04/13/2020 4:49 PM [facility] Neutrophils % 60.3 35.0 - 70.0 % 04/13/2020 4:49 PM [facility] Lymphocytes % 28.3 19.7 - 55.1 % 04/13/2020 4:49 PM [facility] Monocytes % 6.8 3.0 - 15.0 % 04/13/2020 4:49 PM [facility] Eosinophils % 3.4 0.0 - 6.0 % 04/13/2020 4:49 PM [facility] Basophil % 1.0 0.0 - 1.5 % 04/13/2020 4:49 PM [facility] Neutrophils Absolute 5.2 1.6 - 7.0 10 3/uL 04/13/2020 4:49 PM [facility] Lymphocyte Absolute 2.4 0.8 - 2.9 10 3/uL 04/13/2020 4:49 PM [facility] Monocytes Absolute 0.58 0.14 - 0.66 10 3/uL 04/13/2020 4:49 PM [facility] Eosinophils Absolute 0.29 0.00 - 0.45 10 3/uL 04/13/2020 4:49 PM [facility] Basophils Absolute 0.09(H) 0.00 - 0.06 10 3/uL 04/13/2020 4:49 PM [facility] Immature Granulocytes % 0.2 0.0 - 1.0 % 04/13/2020 4:49 PM [facility] Blood BLOOD SPECIMEN / Unknown Lab Venipuncture / Unknown 04/13/2020 4:37 PM CDT 04/13/2020 4:43 PM CDT Jluis Gay MD LAB - HEMATOLOGY OR DERABLES [address] [address], [facility] [phone] * LDH BLOOD (04/13/2020 4:37 PM CDT) Pathologist [facility] LDH Total 133 125 - 243 Units/L 04/13/2020 5:05 PM CDT [facility] Blood BLOOD SPECIMEN / Unknown Lab Venipuncture / Unknown 04/13/2020 4:37 PM CDT 04/13/2020 4:43 PM CDT Jluis Gay MD LAB - CHEMISTRY ORD ERABLES [address] [address], [facility] [phone] * IRON BLOOD (04/13/2020 4:37 PM CDT) [facility] Iron 70 40 - 150 mcg/dL 04/13/2020 5:06 PM CDT [facility] Blood BLOOD SPECIMEN / Unknown Lab Venipuncture / Unknown 04/13/2020 4:37 PM CDT 04/13/2020 4:42 PM CDT Jluis Gay MD LAB - CHEMISTRY ORD ERABLES [address] [address], [facility] [phone] * FOLATE (04/13/2020 4:37 PM CDT) [facility] Folate 17.7 7.0 - 31.4 ng/mL 04/13/2020 5:41 PM CDT [facility] Blood BLOOD SPECIMEN / Unknown Lab Venipuncture / Unknown 04/13/2020 4:37 PM CDT 04/13/2020 4:43 PM CDT Jluis Gay MD LAB - CHEMISTRY ORD ERABLES [address] [address], [facility] [phone] * VITAMIN B12 (04/13/2020 4:37 PM CDT) Vitamin B12 617 213 - 816 pg/mL 04/13/2020 5:41 PM CDT [facility] Blood BLOOD SPECIMEN / Unknown Lab Venipuncture / Unknown 04/13/2020 4:37 PM CDT 04/13/2020 4:43 PM CDT Jluis Gay MD LAB - CHEMISTRY ORD ERABLES [address] [address], [facility] [phone] * TSH (04/13/2020 4:37 PM CDT) TSH 3.986 0.350 - 4.940 uIU/mL 04/13/2020 5:41 PM CDT [facility] Blood BLOOD SPECIMEN / Unknown Lab Venipuncture / Unknown 04/13/2020 4:37 PM CDT 04/13/2020 4:43 PM CDT Jluis Gay MD LAB - CHEMISTRY ORD ERABLES [address] [address], [facility] [phone] * FERRITIN (04/13/2020 4:37 PM CDT) Ferritin 29 13 - 204 ng/mL 04/13/2020 5:26 PM CDT [facility] Blood BLOOD SPECIMEN / Unknown Lab Venipuncture / Unknown 04/13/2020 4:37 PM CDT 04/13/2020 4:42 PM CDT Jluis Gay MD LAB - CHEMISTRY ORD ERABLES [address] [address], [facility] [phone] Care Teams Art Professor Relationship Specialty Start Date End Date [facility], [facility] [address] [place] [address] PCP - General 03/30/20
--- OUTSIDE RECORDS SUMMARY | 2024-10-31 23:24 | XMS_ITS | Clinical Summary ---
Author Organization [facility] Address [address] [place] [address] Care Team Providers Care Sericulturist Name Role Phone [address] Primary Care Prov ider Source Comments [facility],non-owned Affiliates and Associated Physician Practices is amultiple site organization consisting of ambulatory clinics and hospital sitesin [place], [place], [place] and [place]. This disclosure is being madepursuant to the Care Everywhere program and may not contain all information available regarding this patient. Last updated 18.[facility] Allergies Active Allergy Reactions Criticality Noted Date [...] 04/13/2020 3:32 PM CDT Plan of Treatment Health Maintenance Due Date Last Done Comments COLOGUARD (AGES 45-75) - COLON CA SCREENING 1975 COLON MONITORING 1976 COLONOSCOPY - COLON CA SCREENING 1976 CT COLONOGRAPHY - COLON CA SCREENING 1975 Colorectal Cancer Screening 1975 FIT - COLON CA SCREENING 1976 FLEX SIG - COLON CA SCREENING 1976 LIPID TESTING 1975 MAMMOGRAM 1976 PAP SMEAR 1976 HIV SCREENING 1991 HEPATITIS C SCREENING 05/28/1994 DTAP/TDAP/TD VACCINES (1 - Tdap) 1995 HEPATITIS B VACCINE (1 of 3 - 19+ 3-dose series) 1995 PNEUMOCOCCAL VACCINE (1 of 2 - PCV) 1995 COVID-19 VACCINE (1 - season) 2024 INFLUENZA VACCINE (#1) 2024 0, 09/21/2008, 07/10/2007, Additional history exists DEPRESSION SCREENING 09/09/2024 ZOSTER VACCINE (1 of 2) 2026 HIB VACCINE Aged Out No longer eligi ble based on patient's age to complete this topic HPV VACCINE Aged Out No longer eligi ble based on patient's age to complete this topic MENINGOCOCCAL (Group B) VACCINE Aged Out No longer eligible based on patient's age to complete this topic MENINGOCOCCAL VACCINE Aged Out No corey den eligible based on patient's age to complete this topic Care Teams Sericulturist Relationship Specialty [facility] [address] [facility], [place] [address] PCP - General 03/30/20
--- OUTSIDE RECORDS SUMMARY | 2024-10-31 23:25 | XMS_ITS ---
Author Organization [facility] Address [address] [facility] [address], [place] [address] Care Team Providers Care Switchboard Installer Name Role Phone Aden CHILD, PCP Primary Care Provider Maryjo Osborne REASON FOR VISIT Formulary MEDICATIONS Medication SIG (Take, Route, Fr equency, Duration) Notes Start Date End Date Status Unithroid 75 MCG 1 tablet in the morn ing on an empty stomach Orally Once a day for 60 days 09/28/2024 Active Encounters Encounter Location Date Provider Diagnosis [facility] [address] [facility] [address], [place] [address] 09/28/2024 Maryjo Rosario PLAN OF TREATMENT Medication Medication Name Sig Start Date Stop Date Notes Synthroid 75 MCG 1 tablet in the morn ing on an empty stomach Orally Once a day 09/23/2024 Unithroid 75 MCG 1 tablet in the morn ing on an empty stomach Orally Once a day for 60 days 09/28/2024 Next Appt Details Provider Name:Maryjo Rosario, 12/21/2024 01:45:00 PM, [address] [facility] [address], [place], [address],
--- OUTSIDE RECORDS SUMMARY | 2024-10-31 23:25 | XMS_ITS ---
Author Organization [facility] Address [address] [place] [address] Care Team Providers Care Open Hearth Helper Name Role Phone Aden CHILD, PCP Primary Care Provider Maryjo Osborne Unavailable REASON FOR VISIT Thyroid Ultrasound MEDICATIONS Medication SIG (Take, Route, Frequency, Duration) [...] Once a day for 30 day(s) Active Encounters Encounter Location Date Provider Diagnosis [facility] [address] [address] 10/13/2024 Maryjo Rosario Hypothyroidism, postablative E89.0 and Dysphagia R13.10 ASSESSMENTS Encounter Date Diagnosis Assessment Notes Treatment Notes Treatment Clinical Notes 10/13/2024 Hypothyroidism, postablative (ICD-10 - E89.0) 10/13/2024 Dysphagia (ICD-10 - R13.10) PLAN OF TREATMENT Next Appt Details Provider Name:Maryjo Rosario, 12/21/2024 01:45:00 PM, [address], [place], [address],
--- OUTSIDE RECORDS SUMMARY | 2024-10-31 23:25 | XMS_ITS | Encounter Summary ---
Author Organization [facility] Address [address] [place] [address] Care Team Providers Care Drum Attendant Name Role Phone Beatriz Sweeney NP Primary Care Provider [phone] Tony Solis Primary Care Provid er Reason for Referral * Surgical (Routine) - Closed Specialty Diagnoses / Procedures Referred By Nasra allan Referred To Contact Procedures Case request operating room: INJECTION EPIDURAL STEROID CERVICAL C6-7 Olivia Nieves APNP Phone: tel: fax: Referral ID Status Reason Start Date Expiration Date Visits Re quested Visits Authorized [id number] Closed 05/19/2020 06/18/2021 1 1 Encounter Details Date Type Department Care Team (Late st Contact Info) Description 05/19/2020 Prep for Procedure [facility] [place] [address] [id number] Olivia Nieves APNP [address] [place] [phone] Social History Tobacco Use Types Packs/Day Years Used Date Smoking Tobacco: Every Day Cigarettes Smokeless Tobacco: Never Alcohol Use Standard Drinks/Week Comments No 0 (1 standard drink = 0.6 oz pur e alcohol) AUDIT-C Answer Date Recorded Frequency of Alcohol Consumption Never 07/09/2019 Average Number of Drinks Not on file 019 Frequency of Binge Drinking Not on file 06/11 Comments No Sex and Gender Information Value Date Recorded Sex Assigned at Female 10/26/2024 12:18 AM PATIENT SERVICE REP Legal Sex Female 2:51 PM PATIENT SERVICE REP Gender Identity Not on file Sexual Orientation Not on file documented as of this encounter Plan of Treatment Upcoming Encounters Date Type Department Care Team (Late st Contact Info) Description 01/01/2025 11:15 AM CDT Office Visit [facility], [address] [place], [place] [phone] Raphael De La Cruz MD [facility] [address] [place] [address] documented as of this encounter Visit Diagnoses Not on filedocumented in this encounter Additional Health Concerns Infection Onset Date Last Indicated Resolved Time COVID-19 Rule Out 07/12/2020 07/12/2020 07/15/2020 3:26 AM PATIENT SERVICE REP documented as of this encounter Care Teams Drum Attendant Relationship Specialty Start Date End Date January, LOUIE [address] [place] [address] PCP - General Nurse Practitioner Family 02/05/2010/11 Tony Solis PA [address] [place] [address] PCP - General PHYSICIAN SHOP SERVICE TECHNICIAN 10/12/22 documented as of this encounter
--- OUTSIDE RECORDS SUMMARY | 2024-10-31 23:25 | XMS_ITS | Encounter Summary ---
Author Organization [facility] Address [address] [place] [address] Care Team Providers Care Saxophone Teacher Name Role Phone Beatriz Sweeney NP Primary Care Provider [phone] Tony Solis Primary Care Provid er Reason for Referral * Surgical (Routine) - Closed Specialty Diagnoses / Procedures Referred By Nasra allan Referred To Contact Procedures Case request operating room: INJECTION EPIDURAL STEROID CERVICAL C6-7 Olivia Nieves APNP Phone: tel: fax: Referral ID Status Reason Start Date Expiration Date Visits Re quested Visits Authorized [id number] Closed 08/02/2020 09/01/2021 1 1 ER SCALER Encounter Details Date Type Department Care Team (Late st Contact Info) Description 08/02/2020 Prep for Procedure [facility] [place] [address] [id number] Olivia Nieves APNP [address] [place] [phone] Social History Tobacco Use Types Packs/Day Years [...] Sex Assigned at Female 10/26/2024 12:18 AM LUMBER SCALER Legal Sex Female 2:51 PM LUMBER SCALER Gender Identity Not on file Sexual Orientation Not on file COVID-19 Exposure Response Date Recorded In the last month, have you been in contact with someone who was confirmed or suspected to have Coronavirus / COVID-19? No / Unsure 08/05/2020 2:05 PM LUMBER SCALER documented as of this encounter Plan of Treatment Upcoming Encounters Date Type Department Care Team (Late st Contact Info) Description 01/01/2025 11:15 AM CDT Office Visit [facility], [address] [place], [place] [phone] Raphael De La Cruz MD [facility], [address] [place], [place] [phone] Scheduled Orders Name Type Priority Associated Diagnoses Orde r Schedule Case request operating room: INJECTION EPIDURAL STEROID CERVICAL C6-7 Case Request Routine Once for 1 Occur rences starting 08/02/2020 until 08/02/2020 documented as of this encounter Visit Diagnoses Not on filedocumented in this encounter Care Teams Saxophone Teacher Relationship Specialty Start Date End Date January, LOUIE [address] [place], [place] [phone] PCP - General Nurse Practitioner Family 02/05/2010/11 Tony Solis PA [address] [place] [address] PCP - General PHYSICIAN OPERATIONS ADMINISTRATIVE ASSISTANT 10/12/22 documented as of this encounter
--- OUTSIDE RECORDS SUMMARY | 2024-10-31 23:25 | XMS_ITS ---
Author Organization [facility] Address [address] [place] [address] Care Team Providers Care Pipeline Gang Supervisor Name Role Phone Lesa Medina Unavailable [phone] REASON FOR VISIT HYDRO PNEUMATIC TESTER Allergies Encounters Encounter Location Date Provider Diagnosis [facility] [address] [place] [address] 08/12/2024 Lesa Medina Plan Of Treatment No Information Progress Notes * Chandler PACEiDOB: 6 (49 yo F)Acc No.[id number]:08/12/2024 Progress Notes Patient: Val VENCES Provider: Norris Medina PA-C :1975 A ge:49 Y S ex:Female Date:08/12/2024 Address:[address] [place] [address], [facility] Subjective: * Chief Complaints: * 1 . HYDRO PNEUMATIC TESTER Allergies. * Medical History: Objective: * Vitals: Assessment: Plan: * Treatment: * Billing Information: * Visit Code: * Procedure Codes: * Electronic signature of Josafat Medina PA-C, [facility] on 10/31/2024 at 11:24 PM BUSINESS INSTRUCTOR Sign off status: Pending * Provider: Norris Medina PA-C Date: 10/13/2023 Generated for Nanda jameson/Cristopher/eTransmitting on: 10/31/2024 11:24 PM BUSINESS INSTRUCTOR
--- OUTSIDE RECORDS SUMMARY | 2024-10-31 23:25 | XMS_ITS | Clinical Summary ---
Author Organization [facility] Address [address] [place] [address] Care Team Providers Care Petroleum Production Engineer Name Role Phone Cristiana Sweeneyraf Flores NP Primary Care Provider [phone] Lyly Wheeler MD Unavailable [phone] Allergies Active Allergy Reactions Criticality Noted Date Comments Epinephrine Other (See comments) High 12/01/2021 High bp, Low heart rate no control over her head Medications levothyroxine (SYNTHROID) 88 mcg tablet Take 88 mcg by mouth cementer hand before breakfast Active atorvastatin (LIPITOR) 20 mg tablet Take 20 mg by mouth every other day Active sertraline (ZOLOFT) 100 mg tablet Take 100 mg by mouth daily Active norethindrone (AYGESTIN) 5 mg tablet Take 5 mg by mouth daily Active amLODIPine (NORVASC) 5 mg tablet Take 5 mg by mouth daily Active clonazePAM (KlonoPIN) 0.5 mg tablet Take 0.5 mg by mouth as needed for anxiety Active liothyronine (CYTOMEL) 5 mcg tablet Take 5 mcg by mouth daily Active HYDROcodone-marcial taminophen (NORCO) 5-325 mg per tabletIndicatio ns:Pain Take 1 tablet by mouth every 6 (six) hours as needed for pain 20 tablet 2 Active Active Problems No known active problems Surgical History Surgery Date Site/Laterality Comments RHINOPLASTY EYE SURGERY x4 SECTION x2 BREAST SURGERY implants Medical History Medical History Date Comments Hypertension Hypothyroidism GERD (gastroesophageal reflux disease) Anemia Depression Anxiety High cholesterol Social History Tobacco Use Types Packs/Day Years Used Date Smoking Tobacco: Every Day AUDIT-C Answer Date Recorded Q1: How often do you have a drink containing alc ohol? 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 Gender Identity Not on file Sexual Orientation Not on file Obstetrics History Last Filed Vital Signs Vital Sign Reading Time Taken Comments Blood Pressure 126/81 12/01/2021 2:25 PM CDT Pulse 87 12/01/2021 2:25 PM CDT Temperature 36.6 C (97.8 F) 12/01/2021 12:55 PM CDT Respiratory Rate 16 12/01/2021 2:25 PM CDT Oxygen Saturation 93% 12/01/2021 2:25 PM CDT Inhaled Oxygen Concentration - - Weight 43 kg (94 lb 14.4 oz) 12/01/2021 9:42 AM CDT Height 147.3 cm (4' 10 ) 12/01/2021 9:42 AM CDT Body Mass Index 19.83 12/01/2021 9:42 AM CDT Plan of Treatment Health Maintenance Due Date Last Done Comments Breast Cancer Screening-Mammogram 1976 Cervical Cancer Screening 1976 Colon Cancer Screening-Colonoscopy 1976 Depression Screening 1976 Hepatitis C Screening 1976 DTaP/Tdap/Td Vaccine (1 - Tdap) 1987 Hepatitis B Screening 1994 Regular Well Visit/Exam 18-64 1994 Pneumococcal vaccine <65 (1 of 2 - PCV) 1995 Covid-19 Vaccine (2 - season) 05/10/202406/2022 Influenza Vaccine (#1) 2024 Medical Devices Implanted Type Area Help Desk Manager Device Identifier Shelf Expiration Date Model / Serial / Lot Dental Implant N/A: Tooth Insurance [facility] CLAIMS [facility] CLAIMS [facility] Care Teams Petroleum Production Engineer Relationship Specialty Start Date End Date January, Beatriz Flores NP [address] [place] [address] PCP - General 03/28/20 Lyly Wheeler MD [address] [place] [address] Family Medicine 03/28/20
--- OUTSIDE RECORDS SUMMARY | 2024-10-31 23:25 | XMS_ITS | Encounter Summary ---
Author Organization [facility] Address [address] [place] [address] Care Team Providers Care Field Secretary Name Role Phone Beatriz Sweeney NP Primary Care Provider [phone] Tony Solis Primary Care Provid er Reason for Visit * Reason Onset Date Comments Medication 04/26/2021 Encounter Details Date Type Department Care Team (Late st Contact Info) Description 04/26/2021 Telephone [facility] [place], [place] [phone] [id number] Yesenia Louis MD [facility] [address] [place] [phone] Medication Social History Tobacco Use Types Packs/Day Years [...] Sex Assigned at Female 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 No / Unsure 01/28/2023 11:36 AM CDT documented as of this encounter Plan of Treatment Upcoming Encounters Date Type Department Care Team (Late st Contact Info) Description 01/01/2025 11:15 AM CDT Office Visit [facility], [address] [place] [address] Raphael De La Cruz MD [facility] [address] [place], [place] [phone] documented as of this encounter Visit Diagnoses Not on filedocumented in this encounter Care Teams Field Secretary Relationship Specialty Start Date End Date January, LOUIE Henderson [address] [place] [address] PCP - General Nurse Practitioner Family 02/05/2010/11 Tony Solis PA [address] [place] [address] PCP - General PHYSICIAN INFORMATION SYSTEMS SECURITY OFFICER 10/12/22 documented as of this encounter
--- OUTSIDE RECORDS SUMMARY | 2024-10-31 23:25 | XMS_ITS | Referral Summary ---
Author Organization [facility] Address [address] [place] [address] Care Team Providers Care Ip Architect Name Role Phone Cristiana Sweeneyraf Flores NP Primary Care Provider [phone] Lyly Wheeler MD Unavailable [phone] Allergies Active Allergy Reactions Criticality Noted Date Comments Epinephrine Other (See comments) High 12/01/2021 High bp, Low heart rate no control over her head Medications levothyroxine (SYNTHROID) 88 mcg tablet Take 88 mcg by mouth hub lead before breakfast Active atorvastatin (LIPITOR) 20 mg [...] hours as needed for pain 20 tablet Active Active Problems No known active problems Social History Tobacco Use Types Packs/Day Years [...] on file 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 Gender Identity Not on file Sexual Orientation [...] 12/01/2021 9:42 AM CDT Plan of Treatment Not on file Medical Devices Implanted Type Area Manager Ship Device Identifier Shelf Expiration Date Model / Serial / Lot Dental Implant N/A: [place] [id number] [facility] [place] [phone] [facility] [place] [address] [facility] CLAIMS Care Teams Ip Architect Relationship Specialty Start Date End Date January, Beatriz Flores NP [address] [place] [address] PCP - General 03/28/20 Lyly Wheeler MD [address] [place] [address] Family Medicine 03/28/20
--- OUTSIDE RECORDS SUMMARY | 2024-10-31 23:25 | XMS_ITS ---
Author Organization [facility] Address [address] [facility] [address] [place] [address] Care Team Providers Care Insulation Engineman Name Role Phone Aden CHILD, PCP Primary Care Provider Maryjo Osborne [phone] REASON FOR VISIT Lab Order Encounters Encounter Location Date Provider Diagnosis [facility] [address] [facility] [address], [place] [address] 10/22/2024 Maryjo Rosario PLAN OF TREATMENT Next Appt Details Provider Name:Maryjo Rosario, 12/21/2024 01:45:00 PM, [address], [address],
[2024-10-31 23:29] LABS: Pregnancy On Board Control Positive; Urine Pregnancy Test Negative
[2024-10-31 23:30] LABS: Thyroid Stimulating Hormone Reflex 0.107 uIU/mL (0.465-4.68)
--- NOTE | 2024-11-01 00:15 | PC.NURSE ---
Report received from VIBHA Rose. Assumed care of patient at this time.
[2024-11-01 00:52] LABS: Total Triiodothyronine (T3) 1.29 NG/ML (0.97-1.69)
== END 2024-11-01 01:43 | disposition home or self-care (01) ==
PROVIDERS: Emergency Provider Physician Assistant
DX: F32.A Depression, unspecified (principal); Z63.0 Problems in relationship with spouse or partner; R94.6 Abnormal results of thyroid function studies; Z11.52 Encounter for screening for COVID-19; E05.00 Thyrotoxicosis with diffuse goiter without thyrotoxic crisis or storm; F41.9 Anxiety disorder, unspecified; Z79.899 Other long term (current) drug therapy
CPT/HCPCS: 36415; 80053; 80307; 81001; 81025; 82077; 84439; 84443; 84480; 85025; 87635; 99284

== ENCOUNTER 2025-02-22 10:35 | Emergency (ER) | payer OTHER, SELFPAY ==
--- NOTE | ~2025-02-22 | CT_ITS ---
EXAMINATION: CT abdomen pelvis wo con DATE: 02/22/2025 11:13 INDICATION: Hematuria TECHNIQUE: Computed tomography (CT) of the abdomen and pelvis was performed without intravenous contr ast. Automated exposure control and iterative reconstruction technique were employed. The dose-length product was 152.81 mGy-cm. COMPARISON: None FINDINGS: Lung bases are clear. Visualized inferior heart is normal. No pericardial or pleural effusion. 5 mm c yst in the right hepatic lobe. Cholecystectomy clips the gallbladder fossa. Spleen, pancreas and bila teral adrenal glands are normal. Kidneys and ureters are normal with no urolithiasis, hydroureteronep hrosis or perinephric/ureteral stranding. Bladder, anteverted uterus and bilateral adnexa are unremar kable. Bowels including the appendix are normal. No free intraperitoneal gas or fluid. Bones are unre markable. IMPRESSION: 1. No urolithiasis or acute intra-abdominal/pelvic process. Reviewed, dictated and finalized at location A.
[2025-02-22 10:39] VITALS: BP 129/85; PULSE 67; RESP 16; TEMP 36.6; O2SAT 99
[2025-02-22 10:45] LABS: BEDSIDEPREGUCG Negative (Negative)
[2025-02-22 11:01] LABS: Bacteria Urine 4+ /hpf; Non Pathogenic Casts 0-2; RBC Urine >100 /hpf (0-2); Squamous Epithelial Cell Urine None Seen /hpf (Few); WBC Urine >100 /hpf (0-3)
[2025-02-22 11:07] LABS: Add Urine Microscopic? YES; Appearance Urine Cloudy (Clear); Bilirubin Urine Negative (Negative); Blood Urine 3+ (Negative); Color Urine Orange (Yellow); Glucose Urine UA Negative (Negative); Ketones Urine Negative (Negative); Leukocyte Esterase Ur 2+ LEU/UL (Negative); Nitrate Urine Positive (Negative); Protein Urine 2+ mg/dL (Negative); Specific Grav Ur 1.016 (1.001-1.035); pH Urine 5.5 (5.0-9.0)
[2025-02-22 11:24] LABS: Basophils Percent Auto 0.5 % (0.2-1.2); Eosinophils Absolute Auto 0.1 K/mm3 (0-0.3); Eosinophils Percent Auto 1.6 % (0-4.4); Hematocrit 44.9 % (37.0-47.0); Hemoglobin 14.6 g/dL (12.0-15.0); Immature Granulocyte Absolute 0.02 K/mm3 (0.00-0.031); Immature Granulocyte Percent A 0.3 % (0-0.5); Lymphocytes Absolute Auto 2.27 K/mm3 (0.9-3.2); Mean Corpuscular HGB Conc 32.5 g/dl (32-36); Mean Corpuscular Hemoglobin 30.1 pg (26-34); Mean Corpuscular Volume 92.6 fl (80-100); Mean Platelet Volume 8.9 fl (7.4-10.4); Monocytes Absolute Auto 0.4 K/mm3 (0.1-0.6); Monocytes Percent Auto 5.6 % (2.6-8.5); Neutrophils Absolute Auto 4.5 K/mm3 (1.3-6.7); Platelet Count Result 214 k/mm3 (150-375); Red Blood Count 4.85 M/mm3 (4.2-5.4); Red Cell Distribution Width 13.4 % (11.5-14.5); White Blood Count 7.3 K/mm3 (4.5-10.0)
[2025-02-22 11:32] LABS: Anion Gap 7 mmol/L (4-12); Blood Urea Nitrogen 11 mg/dL (7-17); Calcium 9.7 mg/dL (8.4-10.2); Carbon Dioxide 26 mmol/L (22-30); Chloride 105 mmol/L (98-107); Estimated Glomerular Filt Rate > 60; Glucose 86 mg/dL (65-110); Sodium 138 mmol/L (137-145)
--- OUTSIDE RECORDS SUMMARY | 2025-02-22 11:32 | XMS_ITS ---
Author Organization [facility] Address [address] [address] Care Team Providers Care Soil Chemist Name Role Phone Aden CHILD, PCP Primary Care Provider Maryjo Osborne REASON FOR VISIT Refill MEDICATIONS Medication SIG (Take, Route, Fr equency, Duration) Notes Start Date End Date Status Unithroid 75 MCG 1 tablet in the morn ing on an empty stomach Orally Once a day for 60 days 09/28/2024 Active Encounters Encounter Location Date Provider Diagnosis [facility] [address] [address] 11/09/2024 Maryjo Rosario PLAN OF TREATMENT Medication Medication Name Sig Start Date Stop Date Notes Unithroid 75 MCG 1 tablet in the morn ing on an empty stomach Orally Once a day for 60 days 09/28/2024
--- OUTSIDE RECORDS SUMMARY | 2025-02-22 11:32 | XMS_ITS ---
Author Organization [facility] Address [address] [address] Care Team Providers Care Account Executive Metalworking Name Role Phone Aden CHILD, PCP Primary Care Provider Maryjo Osborne Unavailable [phone] ALLERGIES Allergen (clinical drug ingredient) Drug/Non Drug Allergy documented on EMR Reaction Allergy Type Onset Date Status methimazole methIMAzole Unknown Drug Allergy Act jimmie epinephrine EPINEPHrine Unknown Drug Allergy Act jimmie levothyroxine Unithroid rash Drug Allergy Act jimmie REASON FOR VISIT Med Reaction MEDICATIONS Medication SIG (Take, Route, Frequency, Duration) Notes Start Date End Date Status Levothyroxine Sodium 75 MCG 1 tablet in the morning on an empty stomach Orally Once a day for 30 day(s) 11/09/2024 Active Encounters Encounter Location Date Provider Diagnosis [facility] [address] [address] 11/09/2024 Maryjo Rosario PLAN OF TREATMENT Medication Medication Name Sig Start Date Stop Date Notes Unithroid 75 MCG 1 tablet in the morn ing on an empty stomach Orally Once a day 09/28/2024 Levothyroxine Sodium 75 MCG 1 tablet in the morning on an empty stomach Orally Once a day for 30 day(s) 11/09/2024
--- OUTSIDE RECORDS SUMMARY | 2025-02-22 11:32 | XMS_ITS | Clinical Summary ---
Author Organization [facility] Address [address] [place] [address] Care Team Providers Care Documentation Designer Name Role Phone Lyly Wheeler MD Unavailable [phone] Braydon Fan Primary Care Provide r Allergies Active Allergy Reactions Criticality Noted Date Comments Epinephrine Other (See comments) High 12/01/2021 High bp, Low heart rate no control over her head Medications levothyroxine (SYNTHROID) 88 mcg tablet Take 88 mcg by mouth curator horticultural museum before breakfast Active atorvastatin (LIPITOR) 20 mg [...] Active Active Problems No known active problems Encounters Date Type Department Care Team Description 01/05/2025 Telephone [facility] Diabetes and Endocrinology [facility] [place] [address] Michelle Jaeger MD New referral to Endocrinology from Last 3 Months Surgical History Surgery Date Site/Laterality Comments RHINOPLASTY [...] on file 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 Gender Identity Not on file Sexual Orientation [...] 9:42 AM CDT Height 147.3 cm (4' 10) 12/01/2021 9:42 AM CDT Body Mass Index 19.83 12/01/2021 9:42 AM CDT Plan of Treatment Health Maintenance Due Date Last Done Comments Breast Cancer Screening-Mammogram 1976 Cervical Cancer Screening 1976 Colon Cancer Screening-Colonoscopy 1976 Depression Screening 1976 Hepatitis C Screening 1976 Regular Well Visit/Exam 18-64 1994 Pneumococcal vaccine <65 (1 of 2 - PCV) 1995 Covid-19 Vaccine (2023-2 5 season) 2024 11/16/2021, 03/08/2021, 01/26/2021 Influenza Vaccine (Season Ended) 2025 11/07/2009, 09/21/2008, 07/10/2007, Additional history exists DTaP/Tdap/Td Vaccine (2 - Td or Tdap) 05/28/2027 05/28/2017, 02/02/2005, 12/25/2004 Hepatitis B Screening Completed 12/25/2004 , 07/26/2004, 06/08/2004 Medical Devices Implanted Type Area Punch Finisher Device Identifier Shelf Expiration Date Model / Serial / Lot Dental Implant N/A: Tooth Insurance Member Subscriber Plan / Payer (Ef fective 2020-Present) Name:Val Salgado Relation to Subscriber:Self Name:Val Salgado Payer ID:[id number] (NAIC) Group ID:Not on file Type: Address: [place] [phone] CLAIMS Care Teams Documentation Designer Relationship Specialty Start Date End Date Braydon Fan PA [address] [place], [place] [address] PCP - General Physician Chemic Mangler 01/05/25 Lyly Wheeler MD [address] [place], [place] [phone] Family Medicine 03/28/20
--- OUTSIDE RECORDS SUMMARY | 2025-02-22 11:32 | XMS_ITS | Referral Summary ---
Author Organization [facility] Address [address] [place] [address] Care Team Providers Care Home School Teacher Name Role Phone Lyly Wheeler MD Unavailable [phone] Braydon Fan Primary Care Provide r Encounters Date Type Department Care Team Description 01/05/2025 Telephone [facility] Diabetes and Endocrinology [address] [place] [address] Michelle Jaeger MD New referral to Endocrinology from Last 3 Months Allergies Active Allergy Reactions Criticality Noted Date Comments Epinephrine Other (See comments) High 12/01/2021 High bp, Low heart rate no control over her head Medications levothyroxine (SYNTHROID) 88 mcg tablet Take 88 mcg by mouth dip tanker before breakfast Active atorvastatin (LIPITOR) 20 mg [...] on file 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
--- OUTSIDE RECORDS SUMMARY | 2025-02-22 11:32 | XMS_ITS | Patient Health Record ---
Author Organization [facility] [place] ([address]) Address [address] [place] [address] Care Team Providers Care Printing Roller Handler Name Role Phone Lesa Medina Unavailable [phone] Reason For Referral No Information Plan Of Treatment No Information Insurance Providers Payer Name Payer Address Payer Phone Subscriber Number Group Number Insured Name Patient Relationship to Insured Coverage Start Date Coverage End Date [facility] [address] [place] [address] [id number] Val Salgado Self - patient is the insured
--- OUTSIDE RECORDS SUMMARY | 2025-02-22 11:32 | XMS_ITS ---
Author Organization [facility] Address [address] [address] Care Team Providers Care Clinical Cytogenetics Director Name Role Phone Aden CHILD, PCP Primary Care Provider Maryjo Osborne REASON FOR VISIT Hypothyroid s/p RAIA x 2 Graves Hyperthyroidism Encounters Encounter Location Date Provider Diagnosis Diabetes & Endocrinology [address] [facility] [address] [address] 12/21/2024 Maryjo Rosario PLAN OF TREATMENT No Information Progress Notes * Examination Category Sub-Category Detail Notes Category Not es General Examination GENERAL APPEARANCE: appearance wnl HEAD: normocephalic, atrau matic EYES: conjunctivae and lid s wnl. no exophthalmos NECK: supple, no lymphaden opathy HEART: S1, S2, No murmurs. RRR LUNGS: effort nonlabored. c lear to auscultation bilaterally ABDOMEN: no distention, judit s, or tenderness. bowel sounds normal NEUROLOGIC: no tremor. deep tend on reflexes normal SKIN: no apparent lesions EXTREMITIES: no edema BREASTS: MUSCULOSKELETAL: station and gait nor mal. Muscle strength normal PSYCH: oriented x 3. memory wnl THYROID no masses, symmetric al. nontender
--- OUTSIDE RECORDS SUMMARY | 2025-02-22 11:33 | XMS_ITS ---
Author Organization [facility] [place] ([address]) Address [address] [place] [address] Care Team Providers Care Bone Crusher Name Role Phone Lesa Medina Unavailable [phone] REASON FOR VISIT CASH APPLICATION CLERK Allergies Encounters Encounter Location Date Provider Diagnosis [address] [address] 08/12/2024 Lesa Medina Plan Of Treatment No Information Progress Notes * Chandler PACEiDOB: 6 (49 yo F)Acc No.[id number]:08/12/2024 Progress Notes Patient: Val VENCES Provider: Norris Medina PA-C :1975 A ge:49 Y S ex:Female Date:08/12/2024 Address:[address] [place] [address], [facility] Subjective: * Chief Complaints: * 1 . CASH APPLICATION CLERK Allergies. * Medical History: Objective: * Vitals: Assessment: Plan: * Treatment: * Billing Information: * Visit Code: * Procedure Codes: * Electronic signature of Jsoafat Medina PA-C, [facility] on 02/22/2025 at 11:32 AM CDT Sign off status: Pending * Provider: Norris Medina PA-C Date: 10/13/2023 Generated for Nanda jameson/Cristopher/eTransmitting on: 0 02/22/2025 11:32 AM CDT
--- OUTSIDE RECORDS SUMMARY | 2025-02-22 11:33 | XMS_ITS | Patient Health Record ---
Author Organization [facility] Address [address] [facility] [address] [place] [address] Care Team Providers Care Horse Doctor Name Role Phone Derian Vaughn Unavailable [phone] Reason For Referral No Information Social History Sex Assigned At : Social History Observation Description Sex Assigned At Female Encounters Encounter Location Date Provider Diagnosis [facility] [employer] [facility] [place] [address] 10/12/2024 Derian Vaughn [facility], [address] [place] [address] 10/12/2024 Derian Vaughn Plan Of Treatment No Information Insurance Providers Payer Name Payer Address Payer Phone Subscriber Number Group Number Insured Name Patient Relationship to Insured Coverage Start Date Coverage End Date [facility] [address] [place] [address] [id number] JENI PACE Self - patient is the insured
--- OUTSIDE RECORDS SUMMARY | 2025-02-22 11:33 | XMS_ITS | Clinical Summary ---
Author Organization [facility] Address [address] [facility] [place] [address] Care Team Providers Care Cementing Machine Operator Name Role Phone [address] Primary Care Prov ider Source Comments [facility],non-owned Affiliates and Associated Physician Practices is amultiple site organization consisting of ambulatory clinics and hospital sitesin [place], [place], [place] and [place]. This disclosure is being madepursuant to the Care Everywhere program and may not contain all information available regarding this patient. Last updated 18.[facility] Allergies Active Allergy Reactions Criticality Noted Date Comments Epinephrine Anaphylaxis,Rash High 04/16/2016 Thiamazole Other 05/19/2012 Medications * Be aware that medications may not be up to date on this document. Alwaysverify current medications with the patient. No known [...] of Binge Drinking Not on file 01/2020 Comments Unknown Sex and Gender Information Value Date Recorded Sex Assigned at Not on file Legal Sex Female 1:40 PM CDT Gender Identity Not on file Sexual Orientation [...] 3:32 PM CDT Height 147.3 cm (4' 10) 04/13/2020 3:32 PM CDT Body Mass Index [...] SCREENING 1976 LIPID TESTING 1976 MAMMOGRAM 1976 HIV SCREENING 1991 HEPATITIS C SCREENING 05/28/1994 DTAP/TDAP/TD VACCINES (1 - Tdap) 1995 HEPATITIS B VACCINE (1 of 3 - 19+ 3-dose series) 1995 COVID-19 VACCINE (1 - 2023- season) 2024 DEPRESSION SCREENING 09/09/2024 INFLUENZA VACCINE (Season Ended) 2025 11/07/2009, 09/21/2008, 07/10/2007, Additional history exists ZOSTER VACCINE (1 of 2) 2026 HIB VACCINE Aged Out No longer eligi ble based on patient's age to complete this topic HPV VACCINE Aged Out No longer eligi ble based on patient's age to complete this topic MENINGOCOCCAL (Group B) VACCINE SHARED DECISION-MAKING Aged Out No longer eligible based on patient's age to complete this topic MENINGOCOCCAL GROUPS A/C/Y/W VACCINE Aged Out No longer eligible based on patient's age to complete this topic PNEUMOCOCCAL VACCINE Aged Out No long er eligible based on patient's age to complete this topic Insurance Care Teams Cementing Machine Operator Relationship Specialty Start Date End Date [facility], [facility] [address] [facility], [place] [address] PCP - General 03/30/20
--- OUTSIDE RECORDS SUMMARY | 2025-02-22 11:33 | XMS_ITS | Patient Health Record ---
Author Organization [facility] Address [address] [address] Care Team Providers Care Trick Rodeo Rider Name Role Phone Aden CHILD, PCP Primary Care Provider UnavailMaryjo Garcia Unavailable ALLERGIES Allergen (clinical drug ingredient) Drug/Non Drug Allergy documented on EMR Reaction Allergy Type Onset Date Status methimazole methIMAzole Unknown Drug Allergy Act jimmie epinephrine EPINEPHrine Unknown Drug Allergy Act jimmie levothyroxine Unithroid rash Drug Allergy Act jimmie RESULTS Component Value Reference Range Notes TSH Reviewed date:09/23/2024 01:08:59 PM Interpretation: Performing Lab:[facility], Phone - [phone], [facility] Notes/Report: TSH 0.006 0.450-4.500 uIU/mL Estradiol Reviewed date:09/23/2024 12:35:08 PM Interpretation: Performing Lab:[email or web address], Phone - [phone], [facility] Notes/Report: Estradiol 35.9 Adult Female Range Follicular phase 12.5 - 166.0 Ovulation phase 85.8 - 498.0 Luteal phase 43.8 - 211.0 Postmenopausal <6.0 - 54.7 1st trimester 215.0 - >4300.0 Dianelys ECLIA methodology FSH and LH Reviewed date:09/23/2024 11:50:13 AM Interpretation: Performing Lab:[email or web address], Phone - [phone], [facility] Notes[facility]Report: LH 30.4 Adult Female Range Follicular phase 2.4 - 12.6 Ovulation phase 14.0 - 95.6 Luteal phase 1.0 - 11.4 Postmenopausal 7.7 - 58.5 FSH 40.5 Adult Female Range Follicular phase 3.5 - 12.5 Ovulation phase 4.7 - 21.5 Luteal phase 1.7 - 7.7 Postmenopausal 25.8 - 134.8 T4, Free Reviewed date:09/23/2024 11:51:47 AM Interpretation: Performing Lab:[facility] [address], Phone - [phone], Director - [facility] Notes/Report: T4,Free(Direct) 1.86 0.82-1.77 ng/dL T3, Total Reviewed date:09/23/2024 11:50:06 AM Interpretation: Performing Lab:[facility] [place], [address] [place] [address], Phone - [phone], Director - [facility] Notes/Report: Triiodothyronine (T3) 154 71-180 ng/dL -Ultrasound: Thyroid Reviewed date:10/19/2024 02:58:26 PM Interpretation: Performing Lab: Notes/Report: REASON FOR REFERRAL No Information MEDICATIONS Medication SIG (Take, Route, Frequency, Duration) Notes Start Date End Date Status Levothyroxine Sodium 75 MCG 1 tablet in the morning on an empty stomach Orally Once a day for 30 day(s) 30 days only needs appt Active Liothyronine Sodium 5 MCG 1 tablet on an empty stomach Orally Two Times a Day Active clonazePAM 1 MG 1 tablet Orally Once a day Active amLODIPine Besylate 10 MG 1 tablet Orally Once a day for 30 day(s) Active Norethindrone Acetate 5 MG 1 tablet Orally Once a day for 30 day(s) [...] Notes Problem Hypothyroid (E03.9) Active confirmed Hypothyroid (70423881) 07/13/24 TSH 0.017, FT4 1.76 01/30 TSH 2.83, FT4 1.1 Problem Graves' disease (E05.00) Active confirmed Graves' disease (298612548) 11/03 There is diffuse heterogen eity. There are no thyroid nodules. 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 Postoperative Hypothyroidism (11312480) 07/13/24 TSH 0.017, FT4 1.76 01/30 TSH 2.83, FT4 1.1 Problem Dysphagia (R13.10) Active confirmed Dysphagia (47315955) VITAL SIGNS Heart Rate 64 /min 09/21/2024 Blood pressure diastolic 84 mm Hg 09/21/2024 Height 58 in 09/21/2024 Blood pressure systolic 124 mm Hg 09/21/2024 Weight 91 lbs 09/21/2024 BMI 19.02 kg/m2 09/21/2024 Encounters Encounter Location Date Provider Diagnosis [facility] [address] [address] 12/21/2024 Mary[facility] [address] [address] 09/21/2024 Maryjo Rosario Graves' disease E05.00 ; Hypothyroidism, postablative E89.0 ; Perimenopausal N95.1 and Dysphagia R13.10 [facility] [address] [address] 10/13/2024 Maryjo Rosario Hypothyroidism, postablative E89.0 and Dysphagia R13.10 [facility] [address] [address] 09/21/2024 Mary[facility] Ros[facility] [address] [address] 09/23/2024 Maryjo Rosario Hypothyroidism, postablative E89.0 [facility] [address] [address] 09/28/2024 Maryjo Rosario [facility] [address] [address] 10/22/2024 Maryjo Rosario [facility] [address] [address] 11/09/2024 Maryjo Ros[facility] [address] [address] 11/09/2024 Maryjo Rosario ASSESSMENTS Encounter Date Diagnosis Assessment Notes Treatment Notes Treatment Clinical Notes Section Notes 09/21/2024 Graves' disease (ICD-10 - E05.00) [...] TSH, 3RD GENERATION 11/04/2024 T3, TOTAL 11/04/2024 Insurance Providers Payer Name Payer Address Payer Phone Subscriber Number Group Number Insured Name Patient Relationship to Insured Coverage Start Date Coverage End Date [facility] [place] [phone] [id number] Val Salgado Self - patient is the insured MEDICAL (GENERAL) HISTORY Medical History History ICD Code cervical radiculopathy anxiety depression hypertension Hypothyroid Graves Disease Graves Opthalmopathy Surgical History Surgery Date(Month/Year) section x2 eyelid surgery for graves disease
--- NOTE | 2025-02-22 11:36 | ED_ITS ---
HPI - Female Genitourinary General Chief complaint: Urogenital-Female Stated complaint: possible UTI Time Seen by Provider: 02/22/25 10:39 Source: patient Mode of arrival: ambulatory Limitations: no limitations History of Present Illness HPI Narrative: Patient is a 49-year-old female who presents the ED with report of hematuria. Patient reports she had of mild discomfort with urination yesterday. Today she reports urinary frequency and gross hematuria. Denies significant dysuria. States this feels similar to previous urinary tract infections. She denies abdominal or flank pain, nausea, vomiting, fevers. Denies history of kidney stones. Related Data Home Medications ?Medication ?Instructions ?Recorded ?Confirmed ?Last Taken ?Type clonazepam 1 mg tablet 1 mg PO DAILY PRN Anxiety 03/14/24 Unknown History Allergies Allergy/AdvReac Type Severity Reaction Status Date / Time epinephrine AdvReac Shakiness Verified 02/22/25 10:44 Review of Systems 2 Review of Systems: All systems reviewed & are unremarkable except as noted in HPI. All systems reviewed & are unremarkable except as noted in HPI and below PMFSH Social History Social History Substance use type: prescription drug Exam 2 Narrative: GENERAL: Well appearing, thin, non-toxic, in no acute distress. HEAD: Normocephalic, atraumatic. RESPIRATORY: Airway patent, respirations nonlabored. Clear to auscultation bilaterally, no rales, rhonchi, wheezing. CARDIOVASCULAR: Regular rate and rhythm without murmurs, rubs, or gallops. ABDOMINAL: Soft, nontender, nondistended. Normoactive BS. No CVA tenderness. MUSCULOSKELETAL: Moves all extremities. No gross deformities. SKIN: Warm, dry, normal color. NEURO: A&O X3. Speech clear. PSYCHIATRIC: Appropriate mood and affect. Normal interaction. Course Vital Signs Vital signs: Vital Signs Temperature 97.9 F 02/22/25 10:39 Pulse Rate 67 02/22/25 10:39 Respiratory Rate 16 02/22/25 10:39 Blood Pressure 129/85 02/22/25 10:39 Pulse Oximetry 99 02/22/25 10:39 Oxygen Delivery Room Air 02/22/25 10:39 Temperature 97.9 F 02/22/25 10:39 Pulse Rate 57 L 02/22/25 11:51 Respiratory Rate 16 02/22/25 11:51 Blood Pressure 116/85 02/22/25 11:51 Pulse Oximetry 100 02/22/25 11:51 Oxygen Delivery Room Air 02/22/25 10:39 MDM - Female Genitourinary MDM Narrative Medical decision making narrative: Patient presented to ED with hematuria, urinary frequency, concern for UTI. Vital signs are stable upon arrival. Patient is in no acute distress. Denying abdominal or flank pain, systemic signs of infection. Laboratory studies unremarkable. No leukocytosis. Stable kidney function. UA consistent with infection, positive nitrate, greater than 100 WBC/RBC, 4+ urine bacteria. Sent for culture. Urine is negative. CT scan of abdomen/pelvis was obtained without evidence of pyelonephritis or ureterolithiasis. Patient will be started on antibiotics for UTI. Will also prescribed Pyridium for symptom relief. Recommended close follow-up with PCP for further evaluation and urine culture results. Given return precautions. She agrees with plan. Discharged in stable condition. Medical Records Attestation: I reviewed the patient's medical records. Lab Data Attestation: I reviewed the patient's lab results. 02/22/25 11:19 02/22/25 11:19 Labs: Lab Results 02/22/25 02/22/25 02/22/25 Range/Units 10:43 10:45 11:19 WBC 7.3 (4.5-10.0) K/mm3 RBC 4.85 (4.2-5.4) M/mm3 Hgb 14.6 (12.0-15.0) g/dL Hct 44.9 (37.0-47.0) % MCV 92.6 (80-100) fl MCH 30.1 (26-34) pg MCHC 32.5 (32-36) g/dl RDW 13.4 (11.5-14.5) % Plt Count 214 (150-375) k/mm3 MPV 8.9 (7.4-10.4) fl Immature Gran % (Auto) 0.3 (0-0.5) % Neut % (Auto) 61.0 (45.5-73.1) % Lymph % (Auto) 31.0 (18.3-44.2) % [place] % (Auto) 5.6 (2.6-8.5) % Eos % (Auto) 1.6 (0-4.4) % Baso % (Auto) 0.5 (0.2-1.2) % Lymph # (Auto) 2.27 (0.9-3.2) K/mm3 [place]oval # (Auto) 0.4 (0.1-0.6) K/mm3 Eos # (Auto) 0.1 (0-0.3) K/mm3 Baso # (Auto) 0.0 (0.0-0.1) K/mm3 Abs Immat Gran (auto) 0.02 (0.00-0.031) K/mm3 Absolute Neuts (auto) 4.5 (1.3-6.7) K/mm3 Absolute Nucleated RBC 0.000 (0.0-0.012) K/mm3 Nucleated RBC % 0.0 (0.0-0.2) % Sodium 138 (137-145) mmol/L Potassium 4.0 (3.4-5.0) mmol/L Chloride 105 (98-107) mmol/L Carbon Dioxide 26 (22-30) mmol/L Anion Gap 7 (4-12) mmol/L BUN 11 D (7-17) mg/dL Creatinine 0.80 (0.7-1.0) mg/dL Estim Creat Clear Calc Not Reportable Estimated GFR > 60 (59 - ) Glucose 86 (65-110) mg/dL Calcium 9.7 (8.4-10.2) mg/dL Urine Color [place] H (Yellow) Urine Appearance Cloudy H (Clear) Urine pH 5.5 (5.0-9.0) Ur Specific [place] 1.016 (1.001-1.035) Urine Protein 2+ H (Negative) mg/dL Urine Glucose (UA) Negative (Negative) mg/dL Urine Ketones Negative (Negative) mg/dL Ur Blood (Man) 3+ H (Negative) Urine Nitrate Positive H (Negative) Urine Bilirubin Negative (Negative) Urine Urobilinogen 1.0 (<2.0) mg/dL Leukocyte Esterase Rfl 2+ H (Negative) LUIS/UL Urine RBC >100 H (0-2) /hpf Urine WBC >100 H (0-3) /hpf Ur Squamous Epith Cells None seen (Few) /hpf Urine Bacteria 4+ H /hpf Urine Casts 0-2 POC Urine HCG, Qual Negative (Negative) Imaging Data Attestation: I personally reviewed and interpreted this imaging study as follows: Radiologist's impression: ITS Impressions Abdomen/Pelvis CT 02/22/25 11:16 IMPRESSION: 1. No urolithiasis or acute intra-abdominal/pelvic process. Discharge Plan Discharge Clinical Impression: Urinary tract infection Qualifiers: Urinary tract infection type: acute cystitis Hematuria presence: with hematuria Qualified Code(s): N30.01 - Acute cystitis with hematuria Hematuria Qualifiers: Hematuria type: gross Qualified Code(s): R31.0 - Gross hematuria Patient Disposition: Home Condition: Stable Instructions: Antibiotic Form, Urinary Tract Infection in Women (ED), Hematuria (ED) Additional Instructions: Take antibiotics as prescribed for urinary tract infection. Take Pyridium as prescribed over the next 2 days to help with symptoms. Follow up with your primary care doctor for further evaluation and urine culture results. Return to the ED if you experience worsening or severe symptoms, difficulty urinating, severe abdominal or back pain, unable to keep down food or drink, fevers, or any other symptoms of concern. Patient Language: French Prescriptions: New phenazopyridine [Pyridium] 200 mg tablet 200 mg PO TID Qty: 6 0RF cephalexin 500 mg capsule 500 mg PO Q6H 7 Days Qty: 28 0RF No Action clonazepam 1 mg Tablet 1 mg PO DAILY PRN (Reason: Anxiety) Follow-up/Referrals: UNKNOWN,DOCTOR [Primary Care Provider] - Time of Disposition: 11:43
[2025-02-22 11:51] VITALS: BP 116/85; PULSE 57; RESP 16; O2SAT 100
--- OUTSIDE RECORDS SUMMARY | 2025-02-22 11:57 | XMS_ITS | Clinical Summary ---
Author Organization [facility] Address [address] [place] [address] Care Team Providers Care Business Assistant Name Role Phone [address] Primary Care Prov ider Source Comments [facility],non-owned Affiliates and Associated Physician Practices is amultiple site organization consisting of ambulatory clinics and hospital sitesin [place], [place], [place] and [place]. This disclosure is being madepursuant to the Care Everywhere program and may not contain all information available regarding this patient. Last updated 18.[facility] Allergies Active Allergy Reactions Criticality Noted Date [...] to complete this topic Insurance Care Teams Business Assistant Relationship Specialty Start Date End Date [facility] [employer] [address] [facility], [place] [address] PCP - General 03/30/20
--- OUTSIDE RECORDS SUMMARY | 2025-02-22 11:57 | XMS_ITS | Referral Summary ---
Author Organization [facility] Address [address] [place] [address] Care Team Providers Care Geography Instructor Name Role Phone Lyly Wheeler MD Unavailable [phone] Braydon Fan Primary Care Provide r Encounters Date Type Department Care Team Description 01/05/[address] 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
--- OUTSIDE RECORDS SUMMARY | 2025-02-22 11:57 | XMS_ITS | Clinical Summary ---
Author Organization [facility] Address [address] [place] [address] Care Team Providers Care Commercial Art Instructor Name Role Phone Lyly Wheeler MD Unavailable [phone] Braydon Fan Primary Care Provide r Allergies Active Allergy Reactions Criticality Noted Date Comments Epinephrine Other (See comments) High 12/01/2021 High bp, Low heart rate no control over her head Medications levothyroxine (SYNTHROID) 88 mcg tablet Take 88 mcg by mouth box toe buffer before breakfast Active atorvastatin (LIPITOR) 20 mg [...] Type Department Care Team Description 01/05/2025 Telephone [facility] Diabetes and Endocrinology [facility] [place] [address] Michlele Jaeger MD New referral to Endocrinology from [...] on file 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 Gender Identity Not on file Sexual Orientation [...] 07/26/2004, 06/08/2004 Medical Devices Implanted Type Area Asp Web Developer Device Identifier Shelf Expiration Date Model / Serial / Lot Dental Implant N/A: Tooth Insurance Member Subscriber Plan / Payer (Ef fective 2020-Present) Name:Val Salgado Relation to Subscriber:Self Name:Val Salgado Payer ID:[id number] (NAIC) Group ID:Not on file Type: Address: [place] [id number] CLAIMS Care Teams Commercial Art Instructor Relationship Specialty Start Date End Date Braydon Fan PA [address] [place], [place] [address] PCP - General Physician Mechanic Recovery 01/05/25 Lyly Wheeler MD [address] [place], [place] [phone] Family Medicine 03/28/20
== END 2025-02-22 11:52 | disposition home or self-care (01) ==
PROVIDERS: Emergency Medicine; Emergency Provider Physician Assistant
DX: N30.01 Acute cystitis with hematuria (principal)
CPT/HCPCS: 36415; 74176; 80048; 81001; 81025; 85025; 87086; 87186; 99284